=== PATIENT | female | born 1950 | race Caucasian/White ===

== ENCOUNTER 2024-01-07 07:15 | Inpatient (IN) | payer MEDICARE ==
--- NOTE | 2024-01-07 07:26 | ED ---
General Adult HPI - General Chief complaint: Shortness of Breath Stated complaint: LESLY Time Seen by Provider: 01/07/24 07:21 Source: patient, family, EMS, RN notes reviewed Mode of arrival: EMS Limitations: no limitations - History of Present Illness Initial comments: Patient is a 73-year-old female presenting to the emergency department with difficulty breathing. Onset of symptoms was just yesterday. Patient does have cough with occasional yellow sputum. No fevers. Patient does have history of COPD with similar symptoms previously. No calf pain. No leg swelling. - Related Data Allergies Allergy/AdvReac Type Severity Reaction Status Date / Time house dust mite Allergy Wheezing Verified 01/07/24 07:37 pollen extracts Allergy Wheezing Verified 01/07/24 07:37 Review of Systems ROS Statement: Those systems with pertinent positive or pertinent negative responses have been documented in the HPI. ROS Other: All systems not noted in ROS Statement are negative. Constitutional: Denies: fever Eyes: Denies: eye pain Respiratory: Reports: as per HPI, cough, dyspnea Cardiovascular: Denies: chest pain Musculoskeletal: Denies: back pain Past Medical History Past Medical History: Cancer Additional Past Medical History / Comment(s): Lung Cancer History of Any Multi-Drug Resistant Organisms: None Reported Past Surgical History: Section Past Psychological History: No Psychological Hx Reported Smoking Status: Former smoker Past Alcohol Use History: None Reported Past Drug Use History: None Reported General Exam Limitations: no limitations General appearance: alert, other (Speaks in 2-3 word sentences) Head exam: Present: normocephalic Eye exam: Present: normal appearance Respiratory exam: Present: respiratory distress, wheezes, accessory muscle use, decreased breath sounds Cardiovascular Exam: Present: normal rhythm, tachycardia GI/Abdominal exam: Present: soft. Absent: tenderness Extremities exam: Present: normal inspection. Absent: pedal edema, calf tenderness Neurological exam: Present: alert Psychiatric exam: Present: normal affect, normal mood Skin exam: Present: normal color Course Vital Signs 01/07/24 01/07/24 01/07/24 07:18 07:25 07:31 Temperature 98.0 F Pulse Rate 124 H 116 H Respiratory 18 36 H Rate Blood Pressure 181/98 O2 Sat by Pulse 100 Oximetry 01/07/24 01/07/24 07:43 08:59 Temperature Pulse Rate 120 H 112 H Respiratory Rate Blood Pressure O2 Sat by Pulse Oximetry EKG Findings - EKG Results: EKG: interpreted by ERMD, sinus rhythm, normal axis, normal QRS, normal ST/T EKG shows: tachycardia Medical Decision Making - Medical Decision Making Was pt. sent in by a medical professional or institution (ANTONIA Moralez, SIDING INSTALLER, urgent care, hospital, or long term...) When possible be specific @ -No Did you speak to anyone other than the patient for history (EMS, parent, family, police, friend...)? What history was obtained from this source @ -EMS helps provide history including presentation onsite and transportation Did you review nursing and triage notes (agree or disagree)? Why? @ -I reviewed and agree with nursing and triage notes Were old charts reviewed (outside hosp., previous admission, EMS record, old EKG, old radiological studies, urgent care reports/EKG's, long term records)? Report findings @ -No old charts were reviewed Differential Diagnosis (chest pain, altered mental status, abdominal pain women, abdominal pain men, vaginal bleeding, weakness, fever, dyspnea, syncope, headache, dizziness, GI bleed, back pain, seizure, CVA, palpatations, mental health, musculoskeletal)? @ -MDM differential differential Dyspnea: Coronary syndrome, arrhythmia, tamponade, asthma, COPD, pulmonary embolism, pneumonia, pneumothorax, pulmonary effusion, anaphylaxis, diabetic ketoacidosis, flailed chest, pulmonary contusion, diaphragmatic rupture, anemia, neuromuscular, this is not meant to be an all-inclusive list. EKG interpreted by me (3pts min.). @ -As above X-rays interpreted by me (1pt min.). @ -Chest x-ray shows COPD changes. No acute process CT interpreted by me (1pt min.). @ -None done U/S interpreted by me (1pt. min.). @ -None done What testing was considered but not performed or refused? (CT, X-rays, U/S, labs)? Why? @ -None What meds were considered but not given or refused? Why? @ -None Did you discuss the management of the patient with other professionals (professionals i.e. ANTONIA Moralez, SIDING INSTALLER, lab, RT, psych nurse, director of social media marketing, buoy tender, teacher, information systems security officer, showcase trimmer)? Give summary @ -Case was discussed with Dr. Brennan, who will admit covering hospital call Was smoking cessation discussed for >3mins.? @ -No Was critical care preformed (if so, how long)? @ -31 minutes critical care time Were there social determinants of health that impacted care today? How? (Homelessness, low income, unemployed, alcoholism, drug addiction, transportati on, low edu. Level, literacy, decrease access to med. care, fci, rehab)? @ -No Was there de-escalation of care discussed even if they declined (Discuss DNR or withdrawal of care, Hospice)? DNR status @ -No What co-morbidities impacted this encounter? (DM, HTN, Smoking, COPD, CAD, Cancer, CVA, ARF, Chemo, Hep., AIDS, mental health diagnosis, sleep apnea, morbid obesity)? @ -History of underlying COPD Was patient admitted / discharged? Hospital course, mention meds given and route, prescriptions, significant lab abnormalities, going to OR and other pertinent info. @ -Patient presents with respiratory distress significantly improved with nebulizers. Patient still has minimal respiratory distress and will be provided additional nebulizer and admitted. Patient and family updated. Admission orders written. Pulmonary will be placed on consult. Potential for sepsis diagnosed at 9:05 AM. Blood culture and lactic acid and IV antibiotics will be ordered. Patient is positive for RSV. Undiagnosed new problem with uncertain prognosis? @ -No Drug Therapy requiring intensive monitoring for toxicity (Heparin, Nitro, Insulin, Cardizem)? @ -No Were any procedures done? @ -No Diagnosis/symptom? @ -COPD, RSV Acute, or Chronic, or Acute on Chronic? @ -Acute, acute Uncomplicated (without systemic symptoms) or Complicated (systemic symptoms)? @ -Default Side effects of treatment? @ -No Exacerbation, Progression, or Severe Exacerbation? @ -COPD exacerbation Poses a threat to life or bodily function? How? (Chest pain, [place], [place], pneumonia, PE, COPD, DKA, ARF, appy, cholecystitis, CVA, Diverticulitis, Homicidal, Suicidal, threat to staff... and all critical care pts) @ -Threat to pulmonary function - Lab Data Result diagrams: 01/07/24 07:43 01/07/24 07:43 Lab Results 01/07/24 01/07/24 01/07/24 Range/Units 07:43 07:43 07:43 WBC 5.1 (3.8-10.6) k/uL RBC 3.43 L (3.80-5.40) m/uL Hgb 11.1 L (11.4-16.0) gm/dL Hct 34.5 (34.0-46.0) % MCV 100.5 H (80.0-100.0) fL MCH 32.3 (25.0-35.0) pg MCHC 32.1 (31.0-37.0) g/dL RDW 16.6 H (11.5-15.5) % Plt Count 217 (150-450) k/uL MPV 8.0 Anisocytosis Slight Macrocytosis Slight PT 10.0 (10.0-12.5) sec INR 0.9 (<1.2) APTT 18.0 L (22.0-30.0) sec Sodium 137 (137-145) mmol/L Potassium 5.1 (3.5-5.1) mmol/L Chloride 107 (98-107) mmol/L Carbon Dioxide 24 (22-30) mmol/L Anion Gap 6 mmol/L BUN 19 H (7-17) mg/dL Creatinine 0.78 (0.52-1.04) mg/dL Est GFR (CKD-EPI)AfAm 89 (>60 ml/min/1.73 sqM) Est GFR (CKD-EPI)NonAf 77 (>60 ml/min/1.73 sqM) Glucose 157 H (74-99) mg/dL Plasma Lactic Acid Rustam (0.7-2.0) mmol/L Calcium 8.8 (8.4-10.2) mg/dL Magnesium 1.8 (1.6-2.3) mg/dL Total Bilirubin 0.6 (0.2-1.3) mg/dL AST 47 H (14-36) U/L ALT 39 H (4-34) U/L Alkaline Phosphatase 90 (38-126) U/L Total Protein 7.2 (6.3-8.2) g/dL Albumin 4.1 (3.5-5.0) g/dL Influenza Type A (PCR) (Not Detectd) Influenza Type B (PCR) (Not Detectd) RSV (PCR) (Not Detectd) SARS-CoV-2 (PCR) (Not Detectd) 01/07/24 01/07/24 Range/Units 07:43 07:43 WBC (3.8-10.6) k/uL RBC (3.80-5.40) m/uL Hgb (11.4-16.0) gm/dL Hct (34.0-46.0) % MCV (80.0-100.0) fL MCH (25.0-35.0) pg MCHC (31.0-37.0) g/dL RDW (11.5-15.5) % Plt Count (150-450) k/uL MPV Anisocytosis Macrocytosis PT (10.0-12.5) sec INR (<1.2) APTT (22.0-30.0) sec Sodium (137-145) mmol/L Potassium (3.5-5.1) mmol/L Chloride (98-107) mmol/L Carbon Dioxide (22-30) mmol/L Anion Gap mmol/L BUN (7-17) mg/dL Creatinine (0.52-1.04) mg/dL Est GFR (CKD-EPI)AfAm (>60 ml/min/1.73 sqM) Est GFR (CKD-EPI)NonAf (>60 ml/min/1.73 sqM) Glucose (74-99) mg/dL Plasma Lactic Acid Rustam 0.9 (0.7-2.0) mmol/L Calcium (8.4-10.2) mg/dL Magnesium (1.6-2.3) mg/dL Total Bilirubin (0.2-1.3) mg/dL AST (14-36) U/L ALT (4-34) U/L Alkaline Phosphatase (38-126) U/L Total Protein (6.3-8.2) g/dL Albumin (3.5-5.0) g/dL Influenza Type A (PCR) Not Detected (Not Detectd) Influenza Type B (PCR) Not Detected (Not Detectd) RSV (PCR) Detected A (Not Detectd) SARS-CoV-2 (PCR) Not Detected (Not Detectd) Critical Care Time Critical Care Time: Yes Total Critical Care Time: 31 Disposition Clinical Impression: Acute exacerbation of chronic obstructive pulmonary disease Disposition: ADMITTED IP TO THIS HOSP Condition: Serious Is patient prescribed a controlled substance at d/c from ED?: No Referrals: Nonstaff,Physician [Primary Care Provider] - 1-2 days Time of Disposition: 09:06
[2024-01-07] MEDS: IPRATROPIUM-ALBUTEROL 3 ML NEB INHALATION STA ×2 (07:31→08:59)
[2024-01-07] MEDS: SODIUM CHLORIDE 0.9% 1,000 ML IV STA (07:38)
[2024-01-07] MEDS: methylPREDNISolone SOD SUCCI 125 MG/2 ML VIAL IV STA (07:38)
--- NOTE | 2024-01-07 08:06 | XR ---
EXAM: XR chest 1V portable CLINICAL INDICATION:Female, 73 years old with history of elida; [facility] COMPARISON: None. TECHNIQUE: Chest single view. FINDINGS: Lines/tubes/devices: EKG leads and necklace overlie the chest. Left chest MediPort with catheter tip over the SVC. Cardiomediastinum: Cardiac silhouette appears normal in size. Partially calcified, mildly tortuous aorta. Vasculature: No increased pulmonary vasculature. Lungs/pleura: Hyperinflated lungs with areas of relative lucency superiorly and linear presumed scarring also in th e right lung apex. No acute consolidation, pleural effusion, or pneumothorax is seen. Bones/soft tissues: Bony thorax appears grossly intact as seen. Mild degenerative changes. Regional soft tissues appear u nremarkable. IMPRESSION: No acute cardiopulmonary findings. Suspect COPD changes.
[2024-01-07 08:24] LABS: Anisocytosis Slight; HCT 34.5 % (34.0-46.0); HGB 11.1 gm/dL (11.4-16.0); MCH 32.3 pg (25.0-35.0); MCHC 32.1 g/dL (31.0-37.0); MCV 100.5 fL (80.0-100.0); Macrocytosis Slight; Platelet Count 217 k/uL (150-450); RBC 3.43 m/uL (3.80-5.40); RDW 16.6 % (11.5-15.5); WBC 5.1 k/uL (3.8-10.6)
[2024-01-07 08:26] LABS: ALT 39 U/L (4-34); AST 47 U/L (14-36); African American GFR (CKD) 89 (>60 ml/min/1.73 sqM); Albumin 4.1 g/dL (3.5-5.0); Alkaline Phosphatase 90 U/L (38-126); Anion Gap 6 mmol/L; Blood Urea Nitrogen 19 mg/dL (7-17); Calcium 8.8 mg/dL (8.4-10.2); Carbon Dioxide 24 mmol/L (22-30); Chloride 107 mmol/L (98-107); Glucose 157 mg/dL (74-99); Magnesium 1.8 mg/dL (1.6-2.3); Non-African American GFR(CKD) 77 (>60 ml/min/1.73 sqM); Sodium 137 mmol/L (137-145); Total Bilirubin 0.6 mg/dL (0.2-1.3); Total Protein 7.2 g/dL (6.3-8.2)
[2024-01-07 08:27] LABS: INR 0.9 (<1.2)
[2024-01-07 08:28] LABS: Potassium 5.1 mmol/L (3.5-5.1)
[2024-01-07] MEDS ORDERED: NALOXONE 0.4 MG/ML 1 ML VIAL IVP PRN (09:07)
[2024-01-07 09:35] LABS: Eosinophils # (M) 0.05 k/uL (0-0.7); Lymphocytes # (M) 0.51 k/uL (1.0-4.8); Monocytes # (M) 1.33 k/uL (0-1.0); Neutrophils # (M) 3.26 k/uL (1.3-7.7); Neutrophils % (M) 64 %; Nucleated Red Blood Cells 0 /100 WBC (0-0); Total Cells Counted 200
[2024-01-07] MEDS: IPRATROPIUM-ALBUTEROL 3 ML NEB INHALATION SCH (11:56)
[2024-01-07] MEDS: ACETAMINOPHEN TAB 325 MG TAB PO PRN (12:07)
[2024-01-07] MEDS: methylPREDNISolone SOD SUCCI 125 MG/2 ML VIAL IV SCH (12:08)
--- NOTE | 2024-01-07 16:23 | P.CNPUL ---
History of Present Illness Consult date: 01/07/24 Requesting physician: Nicolas Brennan Reason for consult: dyspnea, cough, COPD, hypoxemia, lung mass, abnormal CXR/CT Chief complaint: Shortness of breath, cough. History of present illness: Pulmonary consult dated January 07, 2024. 73-year-old female with history of COPD, and lung cancer. The patient presented to the emergency department today, at 7:15 in the morning. The patient came in with complaints of 2 days worth of increasing shortness of breath, chest congestion, and cough. Everything seemed to get worse just yesterday. The patient does not use home oxygen. She is being treated with Trelegy, and albuterol for her COPD. She sees a physician in [place], [place], but the name of . The patient was diagnosed with non-small cell lung cancer, June 2023. She has had chemotherapy, radiation therapy, and now is on immunotherapy, with Keytruda. The patient smoked for 45 years, 1 pack a day. She does not smoke currently. Current labs include a white count 5.1, hemoglobin 11.1, hematocrit 34.5, and platelet count 217,000. Sodium 137, potassium 5.1, chlorides 107, CO2 24, BUN 19, creatinine 0.78. Glucose is 157. She did test positive for RSV. Chest x-ray shows hyperlucent upper lung hua, consistent with proximal acinar or centrilobular emphysema. Review of Systems REVIEW OF SYSTEMS: CONSTITUTIONAL: [Negative.] NEUROLOGIC: [ Negative.] HEENT: [ Negative.] CARDIAC: [Negative.] PULMONARY: Shortness of breath, cough, minimal phlegm production. GI: [Negative.] : [Negative.] RHEUMATOLOGIC: [ Negative.] IMMUNOLOGIC: [ Negative.] ENDOCRINE: [Negative. ] DERMATOLOGIC: [Negative.] Past Medical History Past Medical History: Cancer Additional Past Medical History / Comment(s): Lung Cancer diagnosed in july 13 gets chemo infusions every 3 weeks, last admin december 26, immuno infusions every 3 weeks History of Any Multi-Drug Resistant Organisms: None Reported Past Surgical History: Section Additional Past Surgical History / Comment(s): left hip surgery 11/27/23, cataract surgery, partial nephrectomy Past Psychological History: No Psychological Hx Reported Smoking Status: Former smoker Past Alcohol Use History: None Reported Past Drug Use History: None Reported Medications and Allergies Home Medications Medication Instructions Recorded Confirmed Type Ergocalciferol [Vitamin D2 (1250 1,250 mcg PO FR 01/07/24 01/07/24 History Mcg = 21238 Iu)] Folic Acid 1 mg PO DAILY 01/07/24 01/07/24 History Keytruda(Unknown Dose) 1 dose IV Q21D 01/07/24 01/07/24 History Lidocaine-Prilocaine Cream [Emla 1 applic TOPICAL DIRECTED PRN 01/07/24 01/07/24 History Cream 2.5%/2.5%] OLANZapine [ZyPREXA] 5 mg PO DIRECTED@2100 01/07/24 01/07/24 History Omeprazole 20 mg PO DAILY 01/07/24 01/07/24 History Sennosides/Docusate Sodium [Senna 1 tab PO DAILY PRN 01/07/24 01/07/24 History Plus 8.6-50 mg Tablet] Sertraline HCl [Zoloft] 50 mg PO HS 01/07/24 01/07/24 History dexAMETHasone [Decadron] 4 mg PO DIRECTED 01/07/24 01/07/24 History lisinopriL [Zestril] 5 mg PO DAILY 01/07/24 01/07/24 History Allergies Allergy/AdvReac Type Severity Reaction Status Date / Time house dust mite Allergy Wheezing Verified 01/07/24 13:23 pollen extracts Allergy Wheezing Verified 01/07/24 13:23 Physical Exam Osteopathic Statement: *. No significant issues noted on an osteopathic structural exam other than those noted in the History and Physical/Consult. Vitals: Vital Signs Temp Pulse Pulse Resp BP BP Pulse Ox 01/07/24 13:14 98.6 F 107 H 19 136/54 96 01/07/24 12:42 116 H 20 145/59 98 01/07/24 12:12 110 H 16 01/07/24 11:57 107 H 16 01/07/24 10:00 108 H 22 142/69 99 01/07/24 09:11 110 H 24 01/07/24 09:00 109 H 22 132/71 99 01/07/24 08:59 112 H 01/07/24 08:00 115 H 22 159/70 99 01/07/24 07:43 120 H 01/07/24 07:31 116 H 01/07/24 07:25 36 H 01/07/24 07:18 98.0 F 124 H 18 181/98 100 Intake and Output 01/07/24 01/07/24 01/07/24 06:59 14:59 22:59 Other: Weight 49.895 kg Mild to moderate respiratory distress, frequent cough, audible wheezing. Currently on 6 L nasal cannula. HEENT examination is grossly unremarkable. Mucous membranes are moist. No oral lesions. Neck supple. Full range of motion. No adenopathy thyromegaly or neck vein distention. Cardiovascular examination reveals regular rhythm rate. S1-S2 normal. No S3 or S4. No discernible murmur noted. Heart rate 107 bpm. Lungs reveal coarse bilateral inspiratory and expiratory wheezes and rhonchi. Breath sounds are equal bilaterally but diminished throughout. She coughs frequently. Saturations are 96% on 6 L.. Abdomen soft bowel sounds are heard. No masses or tenderness. Extremities are intact. No cyanosis clubbing or edema. Skin is without rash or lesion. Neurologic examination is brief but nonfocal. Results - Laboratory Findings CBC and BMP: 01/07/24 07:43 01/07/24 07:43 PT/INR, D-dimer PT 10.0 sec (10.0-12.5) 01/07/24 07:43 INR 0.9 (<1.2) 01/07/24 07:43 Abnormal lab findings: Abnormal Labs 01/07/24 01/07/24 01/07/24 07:43 07:43 07:43 RBC 3.43 L Hgb 11.1 L MCV 100.5 H RDW 16.6 H Lymphocytes # (Manual) 0.51 L Monocytes # (Manual) 1.33 H APTT 18.0 L BUN 19 H Glucose 157 H AST 47 H ALT 39 H RSV (PCR) 01/07/24 07:43 RBC Hgb MCV RDW Lymphocytes # (Manual) Monocytes # (Manual) APTT BUN Glucose AST ALT RSV (PCR) Detected A - Diagnostic Findings Chest x-ray: image reviewed Assessment and Plan Assessment: Acute hypoxemic respiratory failure, secondary to COPD exacerbation, likely triggered by RSV infection. History of non-small cell lung cancer, with previous chemotherapy and radiation therapy, now on immunotherapy with Keytruda. Previous history of 45 years of tobacco use. History of hypertension. Plan: Plan dated January 07, 2024. The patient is seen today in room 467. She is quite bronchospastic. Labs, x- rays, and medications are reviewed. The patient has a history of lung cancer, with previous treatment both with chemo, and radiation, now on immunotherapy with Keytruda. She has a history of COPD for many years of tobacco use. Labs, x-rays, and medications are reviewed. Please see my orders. Prognosis is guarded. Time with Patient: Greater than 30
[2024-01-07] MEDS: HEPARIN SODIUM,PORCINE 5,000 UNIT/ML 1 ML VIAL SQ SCH (17:02)
[2024-01-07] MEDS: HYDROcodone/APAP 5-325MG 1 EACH TAB PO PRN (18:32)
[2024-01-07] MEDS: SERTRALINE 50 MG TAB PO SCH (20:14)
[2024-01-07] MEDS ORDERED: OLANZapine 5 MG TAB PO SCH (21:00)
[2024-01-07] MEDS: FORMOTEROL FUMARATE 20 MCG/2 ML NEBU INHALATION SCH (21:06)
[2024-01-07] MEDS: BUDESONIDE 1 MG/2 ML NEBU INHALATION SCH (21:07)
--- NOTE | 2024-01-07 23:12 | P.HPIM ---
History of Present Illness H&P Date: 01/07/24 Chief Complaint: Difficulty in breathing Patient is a 73-year-old female with known history of non-small lung cancer s/p chemotherapy and currently on immunotherapy and prior history of smoking presents to ER with complaints of difficulty breathing and cough with yellow sputum production. All her symptoms started yesterday afternoon and has been worsening which made her to come to ER. Denies any fever or chills. No complaints of nausea vomiting abdominal pain or diarrhea. Denies any recent illnesses or sick contacts. Patient was tachycardic and hypertensive on admission and also requiring oxygen at present nonrebreather on admission. Chest x-ray showed no acute cardiopulmonary findings. Suspect COPD changes. Laboratory data showed WBC 5.1 hemoglobin 11.1 and platelets 217 Sodium 137 potassium 5.1 chloride 107 bicarb is 24 BUN 19 and creatinine 0.78 and blood sugar 157, AST 47 ALT 39 alk phos 90 RSV PCR positive Review of Systems Constitutional: Patient denies any fever or chills . Does have generalized weakness and fatigue s. Abdomen: Patient denied nausea vomiting and diarrhea and abdominal pain. Cardiovascular: Patient denies any chest pain. Positive for short of breath no palpitations. Respiratory: patient does have cough with yellow sputum production and shortness of breath Neurologic: Patient denied any numbness or tingling headache. Musculoskeletal: Patient denies any complaints of joint swelling or deformity. Skin: Negative Psychiatric: Negative Endocrine: No heat or cold intolerance. No recent weight gain. Genitourinary: No dysuria or hematuria. All other 14 point ROS negative except the above Past Medical History Past Medical History: Cancer Additional Past Medical History / Comment(s): Lung Cancer History of Any Multi-Drug Resistant Organisms: None Reported Past Surgical History: Section Past Psychological History: No Psychological Hx Reported Smoking Status: Former smoker Past Alcohol Use History: None Reported Past Drug Use History: None Reported Medications and Allergies Home Medications Medication Instructions Recorded Confirmed Type Ergocalciferol [Vitamin D2 (1250 1,250 mcg PO FR 01/07/24 01/07/24 History Mcg = 26103 Iu)] Folic Acid 1 mg PO DAILY 01/07/24 01/07/24 History Keytruda(Unknown Dose) 1 dose IV Q21D 01/07/24 01/07/24 History Lidocaine-Prilocaine Cream [Emla 1 applic TOPICAL DIRECTED PRN 01/07/24 01/07/24 History Cream 2.5%/2.5%] OLANZapine [ZyPREXA] 5 mg PO DIRECTED@2100 01/07/24 01/07/24 History Omeprazole 20 mg PO DAILY 01/07/24 01/07/24 History Sennosides/Docusate Sodium [Senna 1 tab PO DAILY PRN 01/07/24 01/07/24 History Plus 8.6-50 mg Tablet] Sertraline HCl [Zoloft] 50 mg PO HS 01/07/24 01/07/24 History dexAMETHasone [Decadron] 4 mg PO DIRECTED 01/07/24 01/07/24 History lisinopriL [Zestril] 5 mg PO DAILY 01/07/24 01/07/24 History Allergies Allergy/AdvReac Type Severity Reaction Status Date / Time house dust mite Allergy Wheezing Verified 01/07/24 13:23 pollen extracts Allergy Wheezing Verified 01/07/24 13:23 Physical Exam Vitals: Vital Signs Temp Pulse Resp BP Pulse Ox 01/07/24 09:11 110 H 24 01/07/24 08:59 112 H 01/07/24 07:43 120 H 01/07/24 07:31 116 H 01/07/24 07:25 36 H 01/07/24 07:18 98.0 F 124 H 18 181/98 100 Intake and Output 01/06/24 01/07/24 01/07/24 22:59 06:59 14:59 Other: Weight 49.895 kg PHYSICAL EXAMINATION: Patient is lying in the bed, mild distress, awake alert and oriented.. HEENT: Normocephalic. Neck is supple. Pupils reactive. Nostrils clear. Oral cavity is moist. Neck reveals no JVD, carotid bruits, or thyromegaly. CHEST EXAMINATION: Trachea is central. Symmetrical expansion. Bilateral diffuse wheezing and diminished sounds.. CARDIAC: Normal S1, S2 with no gallops. No murmurs ABDOMEN: Soft. Bowel sounds normal. No organomegaly. No abdominal bruits. Extremities: reveal no edema. No clubbing or cyanosis Neurologically awake, alert, oriented x3 with well-coordinated movements. No focal deficits noted Skin: No rash or skin lesions. Psychiatric: Coperative. Nonsuicidal Musculoskeletal: No joint swelling or deformity. Normal range of motion. Results CBC & Chem 7: 01/07/24 07:43 01/07/24 07:43 Labs: Abnormal Lab Results - Last 24 Hours (Table) 01/07/24 01/07/24 01/07/24 Range/Units 07:43 07:43 07:43 RBC 3.43 L (3.80-5.40) m/uL Hgb 11.1 L (11.4-16.0) gm/dL MCV 100.5 H (80.0-100.0) fL RDW 16.6 H (11.5-15.5) % Lymphocytes # (Manual) 0.51 L (1.0-4.8) k/uL Monocytes # (Manual) 1.33 H (0-1.0) k/uL APTT 18.0 L (22.0-30.0) sec BUN 19 H (7-17) mg/dL Glucose 157 H (74-99) mg/dL AST 47 H (14-36) U/L ALT 39 H (4-34) U/L RSV (PCR) (Not Detectd) 01/07/24 Range/Units 07:43 RBC (3.80-5.40) m/uL Hgb (11.4-16.0) gm/dL MCV (80.0-100.0) fL RDW (11.5-15.5) % Lymphocytes # (Manual) (1.0-4.8) k/uL Monocytes # (Manual) (0-1.0) k/uL APTT (22.0-30.0) sec BUN (7-17) mg/dL Glucose (74-99) mg/dL AST (14-36) U/L ALT (4-34) U/L RSV (PCR) Detected A (Not Detectd) Thrombosis Risk Factor Assmnt - DVT/VTE Prophylaxis DVT/VTE Prophylaxis: Pharmacologic Prophylaxis ordered Assessment and Plan Assessment: Acute hypoxic respiratory failure requiring plus nonrebreather on admission. Acute COPD exacerbation. To acute RSV infection Acute RSV infection Transaminitis Microcytic anemia with hemoglobin 11.1 History of non-small cell lung cancer status post chemoradiation and currently on Keytruda DVT prophylaxis with heparin subcu Plan: Patient will be continued on oxygen supplementation via nasal cannula. Continue with IV Solu-Medrol DuoNebs and antibiotics of ceftriaxone. Procalcitonin level was ordered. Pulmonary consult due to respiratory failure. Current with home medications and follow-up closely. Time with Patient: Greater than 30
[2024-01-07] MEDS: ONDANSETRON 4 MG/2 ML VIAL IVP PRN (23:28)
[2024-01-08] MEDS: FOLIC ACID 1 MG TAB PO SCH (07:48)
[2024-01-08] MEDS: PANTOPRAZOLE 40 MG TABLET PO SCH (07:48)
[2024-01-08 08:34] LABS: HCT 32.2 % (37.2-46.3); HGB 9.8 g/dL (12.0-15.0); MCH 31.6 pg (27.0-32.0); MCHC 30.4 g/dL (32.0-37.0); MCV 103.9 FL (80.0-97.0); Mean Platelet Volume 10.3 FL (9.5-12.2); NRBC Per 100 WBC 0 X 10*3/uL (0.00-0.01); Platelet Count 188 X 10*3/uL (140-440); RDW 16.6 % (11.5-14.5); WBC 8.08 X 10*3/uL (4.50-10.00)
[2024-01-08 09:01] LABS: Basophils # (A) 0.01 X 10*3/uL (0.00-0.10); Basophils % (A) 0.1 %; Eosinophils # (A) 0 X 10*3/uL (0.04-0.35); Eosinophils % (A) 0 %; Lymphocytes # (A) 0.43 X 10*3/uL (0.90-5.00); Lymphocytes % (A) 5.3 %; Monocytes # (A) 1.63 X 10*3/uL (0.20-1.00); Monocytes % (A) 20.2 %; Neutrophils # (A) 5.94 X 10*3/uL (1.80-7.70); Neutrophils % (A) 73.5 %; RBC Morphology Normal (Normal)
[2024-01-08 09:09] LABS: ALT 32 U/L (8-44); AST 30 U/L (13-35); Albumin 4.2 g/dL (3.8-4.9); Albumin/Globulin Ratio 1.75 Ratio (1.60-3.17); Alkaline Phosphatase 90 U/L (41-126); BUN/Creat Ratio 28.75 Ratio (12.00-20.00); Calcium 8.5 mg/dL (8.7-10.3); Carbon Dioxide 24.2 mmol/L (21.6-31.8); Chloride 106 mmol/L (96-109); Globulin 2.4 g/dL (1.6-3.3); Glucose 137 mg/dL (70-110); Potassium 5.1 mmol/L (3.5-5.5); Sodium 141 mmol/L (135-145); Total Bilirubin <0.2 mg/dL (0.3-1.2); Total Protein 6.6 g/dL (6.2-8.2)
[2024-01-08] MEDS: lisinopriL 5 MG TAB PO SCH (10:49)
[2024-01-08] MEDS: TRELEGY ELLIPTA INHALER PO SCH (13:47)
--- NOTE | 2024-01-08 16:44 | P.PN ---
Subjective Progress Note Date: 01/08/24 73-year-old female with history of COPD, and lung cancer. The patient presented to the emergency department today, at 7:15 in the morning. The patient came in with complaints of 2 days worth of increasing shortness of breath, chest congestion, and cough. Everything seemed to get worse just yesterday. The patient does not use home oxygen. She is being treated with Trelegy, and albuterol for her COPD. She sees a physician in [place], [place], but the name of . The patient was diagnosed with non-small cell lung cancer, June 2023. She has had chemotherapy, radiation therapy, and now is on immunotherapy, with Keytruda. The patient smoked for 45 years, 1 pack a day. She does not s moke currently. Current labs include a white count 5.1, hemoglobin 11.1, hematocrit 34.5, and platelet count 217,000. Sodium 137, potassium 5.1, chlorides 107, CO2 24, BUN 19, creatinine 0.78. Glucose is 157. She did test positive for RSV. Chest x-ray shows hyperlucent upper lung hua, consistent with proximal acinar or centrilobular emphysema. on today's evaluation of 01/08/2024, the patient is being seen for a follow-up. This patient is known to have advanced COPD, and the patient has been maintained on Trelegy Ellipta on outpatient basis. The patient was hospitalized for worsening shortness of breath attributed essentially to COPD exacerbation. Noted her plastic tubing insulation supervisor and her medical oncologist out of [facility] in [facility]. The patient is known to have non-small cell lung cancer the patient was treated with a combination of chemoradiation therapy and the patient is currently on immunotherapy with Keytruda. She does have an acute RSV infection and the patient remainsOn today's blood work, the patient has no significant abnormalities. The white cell count is at 8 with a hemoglobin 9.8 and a platelet count of 188. The patient's sodium levels at 141, BUN is 23 with a creatinine of 0.8 and a potassium level of 5.1. LFTs are essentially within normal limits. The patient remains on DuoNeb nebulized treatments [id number]. The patient remains on IV Solu-Medrol 60 mg every 6 hours. At this point in time, she is afebrile, she is on 60s of oxygen by nasal cannula with a pulse ox of 99%. I reviewed the chest x-ray from the current admission and this x-ray was done on 01/07/2024 and there is no evidence of any acute cardiopulmonary process. There is emphysematous changes mainly involving the upper lobes and the patient has obvious hyperinflation. Objective - Vital Signs Vital signs: Vital Signs Temp 97.5 F L 01/08/24 07:27 Pulse 100 01/08/24 12:47 Resp 18 01/08/24 07:27 BP 108/70 01/08/24 07:27 Pulse Ox 100 01/08/24 12:29 FiO2 Intake & Output 01/07/24 01/08/24 01/08/24 18:59 06:59 18:59 Weight 49.895 kg Other: # Voids 1 3 - Exam Mild to moderate respiratory distress, frequent cough, audible wheezing. Currently on 6 L nasal cannula. HEENT examination is grossly unremarkable. Mucous membranes are moist. No oral lesions. Neck supple. Full range of motion. No adenopathy thyromegaly or neck vein distention. Cardiovascular examination reveals regular rhythm rate. S1-S2 normal. No S3 or S4. No discernible murmur noted. Lungs reveal coarse bilateral inspiratory and expiratory wheezes and rhonchi. Breath sounds are equal bilaterally but diminished throughout. She coughs frequently. Abdomen soft bowel sounds are heard. No masses or tenderness. Extremities are intact. No cyanosis clubbing or edema. Skin is without rash or lesion. Neurologic examination is brief but nonfocal. - Labs CBC & Chem 7: 01/08/24 05:15 01/08/24 05:15 Labs: Abnormal Lab Results - Last 24 Hours (Table) 01/07/24 01/08/24 01/08/24 Range/Units 07:43 05:15 05:15 RBC 3.10 L (4.10-5.20) X 10*6/uL Hgb 9.8 L (12.0-15.0) g/dL Hct 32.2 L (37.2-46.3) % MCV 103.9 H (80.0-97.0) FL MCHC 30.4 L (32.0-37.0) g/dL RDW 16.6 H (11.5-14.5) % Immature Gran # 0.07 H (0.00-0.04) X 10*3/uL Lymphocytes # 0.43 L (0.90-5.00) X 10*3/uL Monocytes # 1.63 H (0.20-1.00) X 10*3/uL Eosinophils # 0 L (0.04-0.35) X 10*3/uL BUN/Creatinine Ratio 28.75 H (12.00-20.00) Ratio Glucose 137 H (70-110) mg/dL Calcium 8.5 L (8.7-10.3) mg/dL Total Bilirubin <0.2 L (0.3-1.2) mg/dL Procalcitonin 0.11 H (0.02-0.09) ng/mL Assessment and Plan Plan: Acute hypoxemic respiratory failure, secondary to COPD exacerbation, likely triggered by RSV infection. Acute on chronic shortness of breath secondary to COPD exacerbation/RSV infection Acute RSV tracheobronchitis, no evidence of any pneumonia based on chest x-ray findings. History of non-small cell lung cancer, with previous chemotherapy and radiation therapy, now on immunotherapy with Keytruda. Previous history of 45 years of tobacco use. History of hypertension. Plan: Continue same treatment Titrate FiO2 as tolerated to maintain saturation above 90% Allow the patient to utilize her Trelegy Ellipta from home 1 puff a day DuoNeb nebulized treatments 4 times a day [id number] IV Solu-Medrol 60 mg every 6 hours Resume rest of the home medications Will continue to follow
[2024-01-08] MEDS: IPRATROPIUM-ALBUTEROL 3 ML NEB INHALATION PRN (20:08)
[2024-01-09 08:36] LABS: Basophils # (A) 0.01 X 10*3/uL (0.00-0.10); Basophils % (A) 0.1 %; Eosinophils # (A) 0 X 10*3/uL (0.04-0.35); Eosinophils % (A) 0 %; HCT 29.3 % (37.2-46.3); HGB 8.9 g/dL (12.0-15.0); Lymphocytes # (A) 0.34 X 10*3/uL (0.90-5.00); Lymphocytes % (A) 3.4 %; MCH 31.9 pg (27.0-32.0); MCHC 30.4 g/dL (32.0-37.0); Mean Platelet Volume 10.6 FL (9.5-12.2); Monocytes # (A) 1.69 X 10*3/uL (0.20-1.00); Monocytes % (A) 16.9 %; NRBC Per 100 WBC 0 X 10*3/uL (0.00-0.01); Neutrophils # (A) 7.92 X 10*3/uL (1.80-7.70); Platelet Count 193 X 10*3/uL (140-440); RBC 2.79 X 10*6/uL (4.10-5.20); RDW 16.9 % (11.5-14.5); WBC 10.02 X 10*3/uL (4.50-10.00)
[2024-01-09 08:55] LABS: BUN/Creat Ratio 27.12 Ratio (12.00-20.00); Blood Urea Nitrogen 21.7 mg/dL (9.0-27.0); Calcium 8.2 mg/dL (8.7-10.3); Carbon Dioxide 24.5 mmol/L (21.6-31.8); Chloride 107 mmol/L (96-109); Glucose 124 mg/dL (70-110); Potassium 4.8 mmol/L (3.5-5.5); Sodium 142 mmol/L (135-145)
[2024-01-09] MEDS: MELATONIN 5 MG TABLET PO SCH (22:28)
--- NOTE | 2024-01-09 22:44 | P.PN ---
Subjective Progress Note Date: 01/09/24 73-year-old female with history of COPD, and lung cancer. The patient presented to the emergency department today, at 7:15 in the morning. The patient came in with complaints of 2 days worth of increasing shortness of breath, chest congestion, and cough. Everything seemed to get worse just yesterday. The patient does not use home oxygen. She is being treated with Trelegy, and albuterol for her COPD. She sees a physician in [place], [place], but the name of . The patient was diagnosed with non-small cell lung cancer, June 2023. She has had chemotherapy, radiation therapy, and now is on immunotherapy, with Keytruda. The patient smoked for 45 years, 1 pack a day. She does not s moke currently. Current labs include a white count 5.1, hemoglobin 11.1, hematocrit 34.5, and platelet count 217,000. Sodium 137, potassium 5.1, chlorides 107, CO2 24, BUN 19, creatinine 0.78. Glucose is 157. She did test positive for RSV. Chest x-ray shows hyperlucent upper lung hua, consistent with proximal acinar or centrilobular emphysema. on today's evaluation of 01/08/2024, the patient is being seen for a follow-up. This patient is known to have advanced COPD, and the patient has been maintained on Trelegy Ellipta on outpatient basis. The patient was hospitalized for worsening shortness of breath attributed essentially to COPD exacerbation. Noted her phthalic acid purifier and her medical oncologist out of [facility] in [facility]. The patient is known to have non-small cell lung cancer the patient was treated with a combination of chemoradiation therapy and the patient is currently on immunotherapy with Keytruda. She does have an acute RSV infection and the patient remainsOn today's blood work, the patient has no significant abnormalities. The white cell count is at 8 with a hemoglobin 9.8 and a platelet count of 188. The patient's sodium levels at 141, BUN is 23 with a creatinine of 0.8 and a potassium level of 5.1. LFTs are essentially within normal limits. The patient remains on DuoNeb nebulized treatments [id number]. The patient remains on IV Solu-Medrol 60 mg every 6 hours. At this point in time, she is afebrile, she is on 60s of oxygen by nasal cannula with a pulse ox of 99%. I reviewed the chest x-ray from the current admission and this x-ray was done on 01/07/2024 and there is no evidence of any acute cardiopulmonary process. There is emphysematous changes mainly involving the upper lobes and the patient has obvious hyperinflation. 01/09/2024, patient is less short of breath compared to yesterday and less bronchospastic and wheezy. Has a congested cough. Unable to bring up much sputum. White cell count is at 10 with a hemoglobin 8.9 and a platelet count of 193. Sodium is 142 with a BUN of 21 and a creatinine of 0.8 and a potassium level of 4.8. Remains essentially the same treatment. Remains on DuoNeb. Rem ains on IV Solu-Medrol. Empiric antibiotic coverage with IV Rocephin. No altered mentation. No chest pain. No other complaints otherwise for now. Objective - Vital Signs Vital signs: Vital Signs Temp 97.3 F L 01/09/24 07:29 Pulse 92 01/09/24 09:06 Resp 18 01/09/24 09:06 BP 124/65 01/09/24 07:29 Pulse Ox 100 01/09/24 08:56 FiO2 Intake & Output 01/08/24 01/09/24 01/09/24 18:59 06:59 18:59 Intake Total 474 Balance 474 Intake: Oral 474 Other: Voiding Method Bedside Commode # Voids 3 1 - Exam Mild to moderate respiratory distress, frequent cough, audible wheezing. Currently on 6 L nasal cannula. HEENT examination is grossly unremarkable. Mucous membranes are moist. No oral lesions. Neck supple. Full range of motion. No adenopathy thyromegaly or neck vein distention. Cardiovascular examination reveals regular rhythm rate. S1-S2 normal. No S3 or S4. No discernible murmur noted. Lungs reveal coarse bilateral inspiratory and expiratory wheezes and rhonchi. Breath sounds are equal bilaterally but diminished throughout. She coughs frequently. Abdomen soft bowel sounds are heard. No masses or tenderness. Extremities are intact. No cyanosis clubbing or edema. Skin is without rash or lesion. Neurologic examination is brief but nonfocal. - Labs CBC & Chem 7: 01/09/24 04:52 01/09/24 04:52 Labs: Abnormal Lab Results - Last 24 Hours (Table) 01/09/24 01/09/24 Range/Units 04:52 04:52 WBC 10.02 H (4.50-10.00) X 10*3/uL RBC 2.79 L (4.10-5.20) X 10*6/uL Hgb 8.9 L (12.0-15.0) g/dL Hct 29.3 L (37.2-46.3) % MCV 105.0 H (80.0-97.0) FL MCHC 30.4 L (32.0-37.0) g/dL RDW 16.9 H (11.5-14.5) % Immature Gran # 0.06 H (0.00-0.04) X 10*3/uL Neutrophils # 7.92 H (1.80-7.70) X 10*3/uL Lymphocytes # 0.34 L (0.90-5.00) X 10*3/uL Monocytes # 1.69 H (0.20-1.00) X 10*3/uL Eosinophils # 0 L (0.04-0.35) X 10*3/uL BUN/Creatinine Ratio 27.12 H (12.00-20.00) Ratio Glucose 124 H (70-110) mg/dL Calcium 8.2 L (8.7-10.3) mg/dL Microbiology - Last 24 Hours (Table) 01/07/24 09:14 Blood Culture - Preliminary Blood 01/07/24 08:55 Blood Culture - Preliminary Blood Assessment and Plan Plan: Acute hypoxemic respiratory failure, secondary to COPD exacerbation, likely triggered by RSV infection. Oxygenation is stable and the patient remains on oxygen at 2 L/min nasal cannula with a pulse ox of 97% Acute on chronic shortness of breath secondary to COPD exacerbation/RSV infection, slowly improving and probably some mild clinical improvement is noted over the past 24 hours Acute RSV tracheobronchitis, no evidence of any pneumonia based on chest x-ray findings. History of non-small cell lung cancer, with previous chemotherapy and radiation therapy, now on immunotherapy with Keytruda. Previous history of 45 years of tobacco use. History of hypertension. Plan: Continue same treatment Titrate FiO2 as tolerated to maintain saturation above 90% Allow the patient to utilize her Trelegy Ellipta from home 1 puff a day DuoNeb nebulized treatments 4 times a day [id number] IV Solu-Medrol 60 mg every 6 hours Resume rest of the home medications Will continue to follow
--- NOTE | 2024-01-09 23:14 | P.PN ---
Subjective Progress Note Date: 01/08/24 Patient is a 73-year-old female with known history of non-small lung cancer s/p chemotherapy and currently on immunotherapy and prior history of smoking presents to ER with complaints of difficulty breathing and cough with yellow sputum production. All her symptoms started yesterday afternoon and has been worsening which made her to come to ER. Denies any fever or chills. No complaints of nausea vomiting abdominal pain or diarrhea. Denies any recent illnesses or sick contacts. Patient was tachycar dic and hypertensive on admission and also requiring oxygen at present nonrebreather on admission. Chest x-ray showed no acute cardiopulmonary findings. Suspect COPD changes. Laboratory data showed WBC 5.1 hemoglobin 11.1 and platelets 217 Sodium 137 potassium 5.1 chloride 107 bicarb is 24 BUN 19 and creatinine 0.78 and blood sugar 157, AST 47 ALT 39 alk phos 90 RSV PCR positive 01/08/2024 Patient currently lying in the bed. Awake alert and oriented x 3. Lethargic and weak. Still requiring high flow oxygen at 6 L. Afebrile. No nausea or vomiting or diarrhea. No complaints of chest pain. Still having shortness of breath. Laboratory pressure WBC 8.0 hemoglobin 9.8 and platelets 188 Blood sugar 137 liver enzymes normalized. Patient has been continued on IV Solu-Medrol, DuoNebs and antibiotics of ceftriaxone. Blood cultures negative so far. Pulmonary is on board. Current medications reviewed. Objective - Vital Signs Vital signs: Vital Signs Temp 97.6 F 01/08/24 20:00 Pulse 92 01/08/24 20:18 Resp 18 01/08/24 07:27 BP 129/62 01/08/24 20:00 Pulse Ox 97 01/08/24 20:00 FiO2 Intake & Output 01/08/24 01/08/24 01/09/24 06:59 18:59 06:59 Intake Total 474 Balance 474 Intake: Oral 474 Other: # Voids 3 3 - Exam PHYSICAL EXAMINATION: Patient is lying in the bed, mild distress, awake alert and oriented.. HEENT: Normocephalic. Neck is supple. Pupils reactive. Nostrils clear. Oral cavity is moist. Neck reveals no JVD, carotid bruits, or thyromegaly. CHEST EXAMINATION: Trachea is central. Symmetrical expansion. Bilateral diffuse wheezing and diminished sounds.. CARDIAC: Normal S1, S2 with no gallops. No murmurs ABDOMEN: Soft. Bowel sounds normal. No organomegaly. No abdominal bruits. Extremities: reveal no edema. No clubbing or cyanosis Neurologically awake, alert, oriented x3 with well-coordinated movements. No focal deficits noted Skin: No rash or skin lesions. Psychiatric: Coperative. Nonsuicidal Musculoskeletal: No joint swelling or deformity. Normal range of motion. - Labs CBC & Chem 7: 01/09/24 04:52 01/09/24 04:52 Labs: Abnormal Lab Results - Last 24 Hours (Table) 01/07/24 01/08/24 01/08/24 Range/Units 07:43 05:15 05:15 RBC 3.10 L (4.10-5.20) X 10*6/uL Hgb 9.8 L (12.0-15.0) g/dL Hct 32.2 L (37.2-46.3) % MCV 103.9 H (80.0-97.0) FL MCHC 30.4 L (32.0-37.0) g/dL RDW 16.6 H (11.5-14.5) % Immature Gran # 0.07 H (0.00-0.04) X 10*3/uL Lymphocytes # 0.43 L (0.90-5.00) X 10*3/uL Monocytes # 1.63 H (0.20-1.00) X 10*3/uL Eosinophils # 0 L (0.04-0.35) X 10*3/uL BUN/Creatinine Ratio 28.75 H (12.00-20.00) Ratio Glucose 137 H (70-110) mg/dL Calcium 8.5 L (8.7-10.3) mg/dL Total Bilirubin <0.2 L (0.3-1.2) mg/dL Procalcitonin 0.11 H (0.02-0.09) ng/mL Microbiology - Last 24 Hours (Table) 01/07/24 09:14 Blood Culture - Preliminary Blood 01/07/24 08:55 Blood Culture - Preliminary Blood Assessment and Plan Assessment: Acute hypoxic respiratory failure requiring nonrebreather on admission. Acute COPD exacerbation. Likely due to acute RSV infection Acute RSV infection Transaminitis. Resolved. Microcytic anemia with hemoglobin 11.1 History of non-small cell lung cancer status post chemoradiation and currently on Keytruda DVT prophylaxis with heparin subcu Plan: Patient will be continued on oxygen supplementation via nasal cannula. Currently on 6 L high flow oxygen via nasal cannula. Continue with IV Solu-Medrol DuoNebs and antibiotics of ceftriaxone. Procalcitonin level 0.11 Pulmonary is on board.. Current with home medications and follow-up closely. Time with Patient: Greater than 30
[2024-01-10 08:39] LABS: Basophils # (A) 0.02 X 10*3/uL (0.00-0.10); Basophils % (A) 0.2 %; Eosinophils # (A) 0 X 10*3/uL (0.04-0.35); Eosinophils % (A) 0 %; HCT 29.8 % (37.2-46.3); HGB 9.3 g/dL (12.0-15.0); Lymphocytes # (A) 0.49 X 10*3/uL (0.90-5.00); Lymphocytes % (A) 5.1 %; MCH 31.8 pg (27.0-32.0); MCHC 31.2 g/dL (32.0-37.0); MCV 102.1 FL (80.0-97.0); Mean Platelet Volume 11.1 FL (9.5-12.2); Monocytes # (A) 0.99 X 10*3/uL (0.20-1.00); Monocytes % (A) 10.4 %; NRBC Per 100 WBC 0 X 10*3/uL (0.00-0.01); Neutrophils # (A) 7.92 X 10*3/uL (1.80-7.70); Neutrophils % (A) 82.9 %; Platelet Count 199 X 10*3/uL (140-440); RBC 2.92 X 10*6/uL (4.10-5.20); RDW 17.1 % (11.5-14.5); WBC 9.55 X 10*3/uL (4.50-10.00)
[2024-01-10 08:52] LABS: Blood Urea Nitrogen 20.8 mg/dL (9.0-27.0); Carbon Dioxide 25.6 mmol/L (21.6-31.8); Chloride 106 mmol/L (96-109); Glucose 114 mg/dL (70-110); Potassium 4.6 mmol/L (3.5-5.5); Sodium 142 mmol/L (135-145)
[2024-01-10] MEDS: TRELEGY ELLIPTA INHALER PO SCH (09:09)
--- NOTE | 2024-01-10 15:52 | P.PN ---
Subjective Progress Note Date: 01/10/24 73-year-old female with history of COPD, and lung cancer. The patient presented to the emergency department today, at 7:15 in the morning. The patient came in with complaints of 2 days worth of increasing shortness of breath, chest congestion, and cough. Everything seemed to get worse just yesterday. The patient does not use home oxygen. She is being treated with Trelegy, and albuterol for her COPD. She sees a physician in [place], [place], but the name of . The patient was diagnosed with non-small cell lung cancer, June 2023. She has had chemotherapy, radiation therapy, and now is on immunotherapy, with Keytruda. The patient smoked for 45 years, 1 pack a day. She does not s moke currently. Current labs include a white count 5.1, hemoglobin 11.1, hematocrit 34.5, and platelet count 217,000. Sodium 137, potassium 5.1, chlorides 107, CO2 24, BUN 19, creatinine 0.78. Glucose is 157. She did test positive for RSV. Chest x-ray shows hyperlucent upper lung hua, consistent with proximal acinar or centrilobular emphysema. on today's evaluation of 01/08/2024, the patient is being seen for a follow-up. This patient is known to have advanced COPD, and the patient has been maintained on Trelegy Ellipta on outpatient basis. The patient was hospitalized for worsening shortness of breath attributed essentially to COPD exacerbation. Noted her phy therapist and her medical oncologist out of [facility] in [facility]. The patient is known to have non-small cell lung cancer the patient was treated with a combination of chemoradiation therapy and the patient is currently on immunotherapy with Keytruda. She does have an acute RSV infection and the patient remainsOn today's blood work, the patient has no significant abnormalities. The white cell count is at 8 with a hemoglobin 9.8 and a platelet count of 188. The patient's sodium levels at 141, BUN is 23 with a creatinine of 0.8 and a potassium level of 5.1. LFTs are essentially within normal limits. The patient remains on DuoNeb nebulized treatments [id number]. The patient remains on IV Solu-Medrol 60 mg every 6 hours. At this point in time, she is afebrile, she is on 60s of oxygen by nasal cannula with a pulse ox of 99%. I reviewed the chest x-ray from the current admission and this x-ray was done on 01/07/2024 and there is no evidence of any acute cardiopulmonary process. There is emphysematous changes mainly involving the upper lobes and the patient has obvious hyperinflation. 01/09/2024, patient is less short of breath compared to yesterday and less bronchospastic and wheezy. Has a congested cough. Unable to bring up much sputum. White cell count is at 10 with a hemoglobin 8.9 and a platelet count of 193. Sodium is 142 with a BUN of 21 and a creatinine of 0.8 and a potassium level of 4.8. Remains essentially the same treatment. Remains on DuoNeb. Rem ains on IV Solu-Medrol. Empiric antibiotic coverage with IV Rocephin. No altered mentation. No chest pain. No other complaints otherwise for now. 01/10/2024, the patient is being seen for a follow-up. The patient is feeling better. Less bronchospastic and wheezy compared to yesterday. No new complaints. She remains on oxygen at 2 L/min nasal cannula. She is afebrile. Remains on bronchodilators and steroids. No specific complaints. No altered mentation. No encephalopathy. White cell count is at 9.5 with a hemoglobin 9.3 and a platelet count of 177. Electrolytes are all within normal limits. Procalcitonin level was at 0.11. Objective - Vital Signs Vital signs: Vital Signs Temp 98 F 01/10/24 07:27 Pulse 92 01/10/24 09:08 Resp 19 01/10/24 07:27 BP 145/69 01/10/24 07:27 Pulse Ox 97 01/10/24 08:54 FiO2 Intake & Output 01/09/24 01/10/24 01/10/24 18:59 06:59 18:59 Other: Voiding Method Bedside Commode # Voids 3 2 - Exam Mild to moderate respiratory distress, frequent cough, audible wheezing. Currently on 6 L nasal cannula. HEENT examination is grossly unremarkable. Mucous membranes are moist. No oral lesions. Neck supple. Full range of motion. No adenopathy thyromegaly or neck vein distention. Cardiovascular examination reveals regular rhythm rate. S1-S2 normal. No S3 or S4. No discernible murmur noted. Lungs reveal coarse bilateral inspiratory and expiratory wheezes and rhonchi. Breath sounds are equal bilaterally but diminished throughout. She coughs frequently. Abdomen soft bowel sounds are heard. No masses or tenderness. Extremities are intact. No cyanosis clubbing or edema. Skin is without rash or lesion. Neurologic examination is brief but nonfocal. - Labs CBC & Chem 7: 01/10/24 05:02 01/10/24 05:02 Labs: Abnormal Lab Results - Last 24 Hours (Table) 01/08/24 01/10/24 01/10/24 Range/Units 05:15 05:02 05:02 RBC 2.92 L (4.10-5.20) X 10*6/uL Hgb 9.3 L (12.0-15.0) g/dL Hct 29.8 L (37.2-46.3) % MCV 102.1 H (80.0-97.0) FL MCHC 31.2 L (32.0-37.0) g/dL RDW 17.1 H (11.5-14.5) % Immature Gran # 0.13 H (0.00-0.04) X 10*3/uL Neutrophils # 7.92 H (1.80-7.70) X 10*3/uL Lymphocytes # 0.49 L (0.90-5.00) X 10*3/uL Eosinophils # 0 L (0.04-0.35) X 10*3/uL BUN/Creatinine Ratio 26.00 H (12.00-20.00) Ratio Glucose 114 H (70-110) mg/dL Calcium 8.0 L (8.7-10.3) mg/dL RBC Folate 861 H (280 - 791) ng/mL Microbiology - Last 24 Hours (Table) 01/07/24 09:14 Blood Culture - Preliminary Blood 01/07/24 08:55 Blood Culture - Preliminary Blood Assessment and Plan Plan: Acute hypoxemic respiratory failure, secondary to COPD exacerbation, likely triggered by RSV infection. Oxygenation is stable and the patient remains on oxygen at 2 L/min nasal cannula with a pulse ox of 97% Acute on chronic shortness of breath secondary to COPD exacerbation/RSV infection, slowly improving and probably some mild clinical improvement is noted over the past 24 hours Acute RSV tracheobronchitis, no evidence of any pneumonia based on chest x-ray findings. History of non-small cell lung cancer, with previous chemotherapy and radiation therapy, now on immunotherapy with Keytruda. Previous history of 45 years of tobacco use. History of hypertension. Plan: Clinically improving and the patient is less short of breath compared to yesterday. Continue same treatment Titrate FiO2 as tolerated to maintain saturation above 90% Allow the patient to utilize her Trelegy Ellipta from home 1 puff a day DuoNeb nebulized treatments 4 times a day [id number] IV Solu-Medrol 60 mg every 6 hours and this will be continued for another 24 hours and the patient is going to be switched to oral prednisone as of tomorrow. Resume rest of the home medications Will continue to follow
[2024-01-10] MEDS: IPRATROPIUM-ALBUTEROL 3 ML NEB INHALATION SCH (21:31)
[2024-01-11] MEDS: SENNOSIDES-DOCUSATE SODIUM 1 EACH TAB PO PRN (06:32)
[2024-01-11] MEDS: predniSONE 20 MG TAB PO SCH (11:41)
--- NOTE | 2024-01-11 14:46 | P.PN ---
Subjective Progress Note Date: 01/11/24 73-year-old female with history of COPD, and lung cancer. The patient presented to the emergency department today, at 7:15 in the morning. The patient came in with complaints of 2 days worth of increasing shortness of breath, chest congestion, and cough. Everything seemed to get worse just yesterday. The patient does not use home oxygen. She is being treated with Trelegy, and albuterol for her COPD. She sees a physician in [place], [place], but the name of . The patient was diagnosed with non-small cell lung cancer, June 2023. She has had chemotherapy, radiation therapy, and now is on immunotherapy, with Keytruda. The patient smoked for 45 years, 1 pack a day. She does not s moke currently. Current labs include a white count 5.1, hemoglobin 11.1, hematocrit 34.5, and platelet count 217,000. Sodium 137, potassium 5.1, chlorides 107, CO2 24, BUN 19, creatinine 0.78. Glucose is 157. She did test positive for RSV. Chest x-ray shows hyperlucent upper lung hua, consistent with proximal acinar or centrilobular emphysema. on today's evaluation of 01/08/2024, the patient is being seen for a follow-up. This patient is known to have advanced COPD, and the patient has been maintained on Trelegy Ellipta on outpatient basis. The patient was hospitalized for worsening shortness of breath attributed essentially to COPD exacerbation. 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 The patient is known to have non-small cell lung cancer the patient was treated with a combination of chemoradiation therapy and the patient is currently on immunotherapy with Keytruda. She does have an acute RSV infection and the patient remainsOn today's blood work, the patient has no significant abnormalities. The white cell count is at 8 with a hemoglobin 9.8 and a platelet count of 188. The patient's sodium levels at 141, BUN is 23 with a creatinine of 0.8 and a potassium level of 5.1. LFTs are essentially within normal limits. The patient remains on DuoNeb nebulized treatments [id number]. The patient remains on IV Solu-Medrol 60 mg every 6 hours. At this point in time, she is afebrile, she is on 60s of oxygen by nasal cannula with a pulse ox of 99%. I reviewed the chest x-ray from the current admission and this x-ray was done on 01/07/2024 and there is no evidence of any acute cardiopulmonary process. There is emphysematous changes mainly involving the upper lobes and the patient has obvious hyperinflation. 01/09/2024, patient is less short of breath compared to yesterday and less bronchospastic and wheezy. Has a congested cough. Unable to bring up much sputum. White cell count is at 10 with a hemoglobin 8.9 and a platelet count of 193. Sodium is 142 with a BUN of 21 and a creatinine of 0.8 and a potassium level of 4.8. Remains essentially the same treatment. Remains on DuoNeb. Rem ains on IV Solu-Medrol. Empiric antibiotic coverage with IV Rocephin. No altered mentation. No chest pain. No other complaints otherwise for now. 01/10/2024, the patient is being seen for a follow-up. The patient is feeling better. Less bronchospastic and wheezy compared to yesterday. No new complaints. She remains on oxygen at 2 L/min nasal cannula. She is afebrile. Remains on bronchodilators and steroids. No specific complaints. No altered mentation. No encephalopathy. White cell count is at 9.5 with a hemoglobin 9.3 and a platelet count of 177. Electrolytes are all within normal limits. Procalcitonin level was at 0.11. 01/11/2024, the patient is being seen for a follow-up. Patient is doing well. No significant complaints for now. Will do a home O2 evaluation. The patient is less bronchospastic and wheezy as the patient is recovering from an acute COPD exacerbation related to SV infection. No chest pain. No altered mentation. Last echo is at 9.5 with a hemoglobin of 14 and a platelet count of 199. Electrolytes are all stable. She is in good spirits for now. She has no specific complaints. Objective - Vital Signs Vital signs: Vital Signs Temp 97.6 F 01/11/24 07:24 Pulse 76 01/11/24 07:24 Resp 18 01/11/24 01:13 BP 138/64 01/11/24 07:24 Pulse Ox 98 01/11/24 07:24 FiO2 Intake & Output 01/10/24 01/11/24 01/11/24 18:59 06:59 18:59 Intake Total 240 Balance 240 Intake: Oral 240 Other: Voiding Method Bedside Commode # Voids 3 2 - Exam Mild to moderate respiratory distress, frequent cough, audible wheezing. Currently on 6 L nasal cannula. HEENT examination is grossly unremarkable. Mucous membranes are moist. No oral lesions. Neck supple. Full range of motion. No adenopathy thyromegaly or neck vein distention. Cardiovascular examination reveals regular rhythm rate. S1-S2 normal. No S3 or S4. No discernible murmur noted. Lungs reveal coarse bilateral inspiratory and expiratory wheezes and rhonchi. Breath sounds are equal bilaterally but diminished throughout. She coughs frequently. Abdomen soft bowel sounds are heard. No masses or tenderness. Extremities are intact. No cyanosis clubbing or edema. Skin is without rash or lesion. Neurologic examination is brief but nonfocal. - Labs CBC & Chem 7: 01/10/24 05:02 01/10/24 05:02 Labs: Microbiology - Last 24 Hours (Table) 01/07/24 09:14 Blood Culture - Preliminary Blood 01/07/24 08:55 Blood Culture - Preliminary Blood Assessment and Plan Plan: Acute hypoxemic respiratory failure, secondary to COPD exacerbation, likely triggered by RSV infection. Oxygenation is stable and the patient remains on oxygen at 2 L/min nasal cannula with a pulse ox of 97%, clinically improving Acute on chronic shortness of breath secondary to COPD exacerbation/RSV infection, clinically improving Acute RSV tracheobronchitis, no evidence of any pneumonia based on chest x-ray findings. History of non-small cell lung cancer, with previous chemotherapy and radiation therapy, now on immunotherapy with Keytruda. Previous history of 45 years of tobacco use. History of hypertension. Plan: Clinically improving and the patient is less short of breath compared to yesterday. Continue same treatment Titrate FiO2 as tolerated to maintain saturation above 90% Allow the patient to utilize her Trelegy Ellipta from home 1 puff a day DuoNeb nebulized treatments 4 times a day [id number] Discontinued IV Solu-Medrol start the patient on prednisone burst taper Home O2 evaluation Possible discharge in the next 24 hours Will continue to follow
--- NOTE | 2024-01-12 01:01 | P.PN ---
Subjective Progress Note Date: 01/09/24 Patient is a 73-year-old female with known history of non-small lung cancer s/p chemotherapy and currently on immunotherapy and prior history of smoking presents to ER with complaints of difficulty breathing and cough with yellow sputum production. All her symptoms started yesterday afternoon and has been worsening which made her to come to ER. Denies any fever or chills. No complaints of nausea vomiting abdominal pain or diarrhea. Denies any recent illnesses or sick contacts. Patient was tachycar dic and hypertensive on admission and also requiring oxygen at present nonrebreather on admission. Chest x-ray showed no acute cardiopulmonary findings. Suspect COPD changes. Laboratory data showed WBC 5.1 hemoglobin 11.1 and platelets 217 Sodium 137 potassium 5.1 chloride 107 bicarb is 24 BUN 19 and creatinine 0.78 and blood sugar 157, AST 47 ALT 39 alk phos 90 RSV PCR positive 01/08/2024 Patient currently lying in the bed. Awake alert and oriented x 3. Lethargic and weak. Still requiring high flow oxygen at 6 L. Afebrile. No nausea or vomiting or diarrhea. No complaints of chest pain. Still having shortness of breath. Laboratory pressure WBC 8.0 hemoglobin 9.8 and platelets 188 Blood sugar 137 liver enzymes normalized. Patient has been continued on IV Solu-Medrol, DuoNebs and antibiotics of ceftriaxone. Blood cultures negative so far. Pulmonary is on board. Current medications reviewed. 01/09/2024 Patient is lying in the bed. Awake alert and oriented. Anxious and is also complaints of having shortness of breath. Still having diffuse wheezing and diminished sounds on exam. No complaints of chest pain. Patient has been afebrile. Cough without any sputum production. Her patient has been continued on IV Solu-Medrol DuoNebs and antibiotics empirically in the form of ceftriaxone. Laboratory test showed WBC 10.0 hemoglobin 8.9 and platelets 193 Blood sugar 124 and calcium 8.2. Current medications reviewed. Objective - Vital Signs Vital signs: Vital Signs Temp 98.0 F 01/09/24 20:00 Pulse 98 01/09/24 20:00 Resp 21 01/09/24 20:00 BP 138/54 01/09/24 20:00 Pulse Ox 97 01/09/24 20:00 FiO2 Intake & Output 01/09/24 01/09/24 01/10/24 06:59 18:59 06:59 Other: Voiding Method Bedside Commode # Voids 1 3 - Exam PHYSICAL EXAMINATION: Patient is lying in the bed, mild distress, awake alert and oriented.. HEENT: Normocephalic. Neck is supple. Pupils reactive. Nostrils clear. Oral cavity is moist. Neck reveals no JVD, carotid bruits, or thyromegaly. CHEST EXAMINATION: Trachea is central. Symmetrical expansion. Bilateral diffuse wheezing and diminished sounds.. CARDIAC: Normal S1, S2 with no gallops. No murmurs ABDOMEN: Soft. Bowel sounds normal. No organomegaly. No abdominal bruits. Extremities: reveal no edema. No clubbing or cyanosis Neurologically awake, alert, oriented x3 with well-coordinated movements. No focal deficits noted Skin: No rash or skin lesions. Psychiatric: Coperative. Nonsuicidal Musculoskeletal: No joint swelling or deformity. Normal range of motion. - Labs CBC & Chem 7: 01/10/24 05:02 01/10/24 05:02 Labs: Abnormal Lab Results - Last 24 Hours (Table) 01/08/24 01/09/24 01/09/24 Range/Units 05:15 04:52 04:52 WBC 10.02 H (4.50-10.00) X 10*3/uL RBC 2.79 L (4.10-5.20) X 10*6/uL Hgb 8.9 L (12.0-15.0) g/dL Hct 29.3 L (37.2-46.3) % MCV 105.0 H (80.0-97.0) FL MCHC 30.4 L (32.0-37.0) g/dL RDW 16.9 H (11.5-14.5) % Immature Gran # 0.06 H (0.00-0.04) X 10*3/uL Neutrophils # 7.92 H (1.80-7.70) X 10*3/uL Lymphocytes # 0.34 L (0.90-5.00) X 10*3/uL Monocytes # 1.69 H (0.20-1.00) X 10*3/uL Eosinophils # 0 L (0.04-0.35) X 10*3/uL BUN/Creatinine Ratio 27.12 H (12.00-20.00) Ratio Glucose 124 H (70-110) mg/dL Calcium 8.2 L (8.7-10.3) mg/dL RBC Folate 861 H (280 - 791) ng/mL Microbiology - Last 24 Hours (Table) 01/07/24 09:14 Blood Culture - Preliminary Blood 01/07/24 08:55 Blood Culture - Preliminary Blood Assessment and Plan Assessment: Acute hypoxic respiratory failure requiring nonrebreather on admission. Currently on 2 L oxygen via nasal cannula. Acute COPD exacerbation. Likely due to acute RSV infection Acute RSV infection Transaminitis. Resolved. Microcytic anemia with hemoglobin 11.1 History of non-small cell lung cancer status post chemoradiation and currently on Keytruda DVT prophylaxis with heparin subcu Plan: Patient will be continued on oxygen supplementation via nasal cannula. Currently on 6L-->2L oxygen via nasal cannula. Continue with IV Solu-Medrol DuoNebs and antibiotics of ceftriaxone. Procalcitonin level 0.11 Pulmonary is on board.. Current with home medications and follow-up closely.
--- NOTE | 2024-01-12 01:03 | P.PN ---
Subjective Progress Note Date: 01/10/24 Patient is a 73-year-old female with known history of non-small lung cancer s/p chemotherapy and currently on immunotherapy and prior history of smoking presents to ER with complaints of difficulty breathing and cough with yellow sputum production. All her symptoms started yesterday afternoon and has been worsening which made her to come to ER. Denies any fever or chills. No complaints of nausea vomiting abdominal pain or diarrhea. Denies any recent illnesses or sick contacts. Patient was tachycar dic and hypertensive on admission and also requiring oxygen at present nonrebreather on admission. Chest x-ray showed no acute cardiopulmonary findings. Suspect COPD changes. Laboratory data showed WBC 5.1 hemoglobin 11.1 and platelets 217 Sodium 137 potassium 5.1 chloride 107 bicarb is 24 BUN 19 and creatinine 0.78 and blood sugar 157, AST 47 ALT 39 alk phos 90 RSV PCR positive 01/08/2024 Patient currently lying in the bed. Awake alert and oriented x 3. Lethargic and weak. Still requiring high flow oxygen at 6 L. Afebrile. No nausea or vomiting or diarrhea. No complaints of chest pain. Still having shortness of breath. Laboratory pressure WBC 8.0 hemoglobin 9.8 and platelets 188 Blood sugar 137 liver enzymes normalized. Patient has been continued on IV Solu-Medrol, DuoNebs and antibiotics of ceftriaxone. Blood cultures negative so far. Pulmonary is on board. Current medications reviewed. 01/09/2024 Patient is lying in the bed. Awake alert and oriented. Anxious and is also complaints of having shortness of breath. Still having diffuse wheezing and diminished sounds on exam. No complaints of chest pain. Patient has been afebrile. Cough without any sputum production. Her patient has been continued on IV Solu-Medrol DuoNebs and antibiotics empirically in the form of ceftriaxone. Laboratory test showed WBC 10.0 hemoglobin 8.9 and platelets 193 Blood sugar 124 and calcium 8.2. 01/10/2024 Patient is awake alert and oriented. No complaints of chest pain. Shortness of breath he is improving. No nausea vomiting or abdominal pain. Currently on 2 L oxygen via nasal cannula. Mentation is also much improved. No headache or dizziness. Laboratory data showed WBC 9.4 hemoglobin 9.3 and platelets 499 other laboratory data reviewed. Blood sugars 114. Patient remains on IV Solu- Medrol DuoNebs and antibiotics empirically level of ceftriaxone. Current medications reviewed. Objective - Vital Signs Vital signs: Vital Signs Temp 98.8 F 01/10/24 19:31 Pulse 91 01/10/24 21:38 Resp 18 01/10/24 21:38 BP 123/63 01/10/24 19:31 Pulse Ox 99 01/10/24 19:31 FiO2 Intake & Output 01/10/24 01/10/24 01/11/24 06:59 18:59 06:59 Other: Voiding Method Bedside Commode # Voids 2 3 - Exam PHYSICAL EXAMINATION: Patient is lying in the bed, mild distress, awake alert and oriented.. HEENT: Normocephalic. Neck is supple. Pupils reactive. Nostrils clear. Oral cavity is moist. Neck reveals no JVD, carotid bruits, or thyromegaly. CHEST EXAMINATION: Trachea is central. Symmetrical expansion. Bilateral expiratory wheezing and basilar diminished sounds.. CARDIAC: Normal S1, S2 with no gallops. No murmurs ABDOMEN: Soft. Bowel sounds normal. No organomegaly. No abdominal bruits. Extremities: reveal no edema. No clubbing or cyanosis Neurologically awake, alert, oriented x3 with well-coordinated movements. No fo carlos deficits noted Skin: No rash or skin lesions. Psychiatric: Coperative. Nonsuicidal Musculoskeletal: No joint swelling or deformity. Normal range of motion. - Labs CBC & Chem 7: 01/10/24 05:02 01/10/24 05:02 Labs: Abnormal Lab Results - Last 24 Hours (Table) 01/10/24 01/10/24 Range/Units 05:02 05:02 RBC 2.92 L (4.10-5.20) X 10*6/uL Hgb 9.3 L (12.0-15.0) g/dL Hct 29.8 L (37.2-46.3) % MCV 102.1 H (80.0-97.0) FL MCHC 31.2 L (32.0-37.0) g/dL RDW 17.1 H (11.5-14.5) % Immature Gran # 0.13 H (0.00-0.04) X 10*3/uL Neutrophils # 7.92 H (1.80-7.70) X 10*3/uL Lymphocytes # 0.49 L (0.90-5.00) X 10*3/uL Eosinophils # 0 L (0.04-0.35) X 10*3/uL BUN/Creatinine Ratio 26.00 H (12.00-20.00) Ratio Glucose 114 H (70-110) mg/dL Calcium 8.0 L (8.7-10.3) mg/dL Microbiology - Last 24 Hours (Table) 01/07/24 09:14 Blood Culture - Preliminary Blood 01/07/24 08:55 Blood Culture - Preliminary Blood Assessment and Plan Assessment: Acute hypoxic respiratory failure requiring nonrebreather on admission. Currently on 2 L oxygen via nasal cannula. Acute COPD exacerbation. Likely due to acute RSV infection Acute RSV infection Transaminitis. Resolved. Microcytic anemia with hemoglobin 11.1 History of non-small cell lung cancer status post chemoradiation and currently on Keytruda DVT prophylaxis with heparin subcu Plan: Patient will be continued on oxygen supplementation via nasal cannula. Currently on 6L-->2L oxygen via nasal cannula. Continue with IV Solu-Medrol DuoNebs and antibiotics of ceftriaxone. Procalcitonin level 0.11 Pulmonary is on board.. Current with home medications and follow-up closely.
--- NOTE | 2024-01-12 01:05 | P.PN ---
Subjective Progress Note Date: 01/11/24 Patient is a 73-year-old female with known history of non-small lung cancer s/p chemotherapy and currently on immunotherapy and prior history of smoking presents to ER with complaints of difficulty breathing and cough with yellow sputum production. All her symptoms started yesterday afternoon and has been worsening which made her to come to ER. Denies any fever or chills. No complaints of nausea vomiting abdominal pain or diarrhea. Denies any recent illnesses or sick contacts. Patient was tachycar dic and hypertensive on admission and also requiring oxygen at present nonrebreather on admission. Chest x-ray showed no acute cardiopulmonary findings. Suspect COPD changes. Laboratory data showed WBC 5.1 hemoglobin 11.1 and platelets 217 Sodium 137 potassium 5.1 chloride 107 bicarb is 24 BUN 19 and creatinine 0.78 and blood sugar 157, AST 47 ALT 39 alk phos 90 RSV PCR positive 01/08/2024 Patient currently lying in the bed. Awake alert and oriented x 3. Lethargic and weak. Still requiring high flow oxygen at 6 L. Afebrile. No nausea or vomiting or diarrhea. No complaints of chest pain. Still having shortness of breath. Laboratory pressure WBC 8.0 hemoglobin 9.8 and platelets 188 Blood sugar 137 liver enzymes normalized. Patient has been continued on IV Solu-Medrol, DuoNebs and antibiotics of ceftriaxone. Blood cultures negative so far. Pulmonary is on board. Current medications reviewed. 01/09/2024 Patient is lying in the bed. Awake alert and oriented. Anxious and is also complaints of having shortness of breath. Still having diffuse wheezing and diminished sounds on exam. No complaints of chest pain. Patient has been afebrile. Cough without any sputum production. Her patient has been continued on IV Solu-Medrol DuoNebs and antibiotics empirically in the form of ceftriaxone. Laboratory test showed WBC 10.0 hemoglobin 8.9 and platelets 193 Blood sugar 124 and calcium 8.2. 01/10/2024 Patient is awake alert and oriented. No complaints of chest pain. Shortness of breath he is improving. No nausea vomiting or abdominal pain. Currently on 2 L oxygen via nasal cannula. Mentation is also much improved. No headache or dizziness. Laboratory data showed WBC 9.4 hemoglobin 9.3 and platelets 499 other laboratory data reviewed. Blood sugars 114. Patient remains on IV Solu- Medrol DuoNebs and antibiotics empirically level of ceftriaxone. 01/11/2024 Patient is currently lying in the bed. Able to sit on the side of the bed. No complaints of chest pain or shortness of breath. Patient is having mild expiratory wheezing and basilar diminished sounds. Patient is being continued on IV Solu-Medrol, DuoNebs and empiric antibiotics with ceftriaxone. Patient desaturated to 88% on room air. Currently on 2 L oxygen via nasal cannula. No new laboratory data today. Patient may need home oxygen relation and anticipate discharge in the next 24 hours. Pulmonary is on board. Current medications reviewed. Objective - Vital Signs Vital signs: Vital Signs Temp 97.8 F 01/11/24 19:47 Pulse 96 01/11/24 21:23 Resp 18 01/11/24 19:47 BP 145/62 01/11/24 19:47 Pulse Ox 99 01/11/24 19:47 FiO2 Intake & Output 01/11/24 01/11/24 01/12/24 06:59 18:59 06:59 Intake Total 476 Balance 476 Intake: Oral 476 Other: Voiding Method Bedside Commode # Voids 2 - Exam PHYSICAL EXAMINATION: Patient is lying in the bed, mild distress, awake alert and oriented.. HEENT: Normocephalic. Neck is supple. Pupils reactive. Nostrils clear. Oral cavity is moist. Neck reveals no JVD, carotid bruits, or thyromegaly. CHEST EXAMINATION: Trachea is central. Symmetrical expansion. Bilateral expiratory wheezing and basilar diminished sounds.. CARDIAC: Normal S1, S2 with no gallops. No murmurs ABDOMEN: Soft. Bowel sounds normal. No organomegaly. No abdominal bruits. Extremities: reveal no edema. No clubbing or cyanosis Neurologically awake, alert, oriented x3 with well-coordinated movements. No fo carlos deficits noted Skin: No rash or skin lesions. Psychiatric: Coperative. Nonsuicidal Musculoskeletal: No joint swelling or deformity. Normal range of motion. - Labs CBC & Chem 7: 01/10/24 05:02 01/10/24 05:02 Assessment and Plan Assessment: Acute hypoxic respiratory failure requiring nonrebreather on admission. Currently on 2 L oxygen via nasal cannula. Acute COPD exacerbation. Likely due to acute RSV infection Acute RSV infection Transaminitis. Resolved. Microcytic anemia with hemoglobin 11.1 History of non-small cell lung cancer status post chemoradiation and currently on Keytruda DVT prophylaxis with heparin subcu Plan: Patient will be continued on oxygen supplementation via nasal cannula. C urrently on 6L-->2L oxygen via nasal cannula. Continue with IV Solu-Medrol DuoNebs and antibiotics of ceftriaxone. Procalcitonin level 0.11 Pulmonary is on board.. Current with home medications and follow-up closely.
[2024-01-12] MEDS: ERGOCALCIFEROL 1,250 MCG (50,000 IU) CAPSULE PO SCH (08:20)
[2024-01-12 10:29] LABS: HCT 29.9 % (37.2-46.3); HGB 9.5 g/dL (12.0-15.0); MCH 32.3 pg (27.0-32.0); MCHC 31.8 g/dL (32.0-37.0); MCV 101.7 FL (80.0-97.0); Mean Platelet Volume 10.9 FL (9.5-12.2); NRBC Per 100 WBC 0.05 X 10*3/uL (0.00-0.01); Platelet Count 274 X 10*3/uL (140-440); RBC 2.94 X 10*6/uL (4.10-5.20); WBC 10.17 X 10*3/uL (4.50-10.00)
[2024-01-12 10:36] LABS: BUN/Creat Ratio 21.62 Ratio (12.00-20.00); Blood Urea Nitrogen 17.3 mg/dL (9.0-27.0); Carbon Dioxide 27.4 mmol/L (21.6-31.8); Chloride 104 mmol/L (96-109); Glucose 94 mg/dL (70-110); Sodium 141 mmol/L (135-145)
[2024-01-12 11:04] LABS: Basophils # (A) 0.07 X 10*3/uL (0.00-0.10); Basophils % (A) 0.7 %; Eosinophils # (A) 0.01 X 10*3/uL (0.04-0.35); Eosinophils % (A) 0.1 %; Lymphocytes # (A) 1.62 X 10*3/uL (0.90-5.00); Lymphocytes % (A) 15.9 %; Monocytes # (A) 1.59 X 10*3/uL (0.20-1.00); Monocytes % (A) 15.6 %; Neutrophils # (A) 6.51 X 10*3/uL (1.80-7.70); Neutrophils % (A) 64.1 %
[2024-01-12 14:01] VITALS: BMI 20.7
--- NOTE | 2024-01-12 14:31 | P.PN ---
Subjective Progress Note Date: 01/12/24 73-year-old female with history of COPD, and lung cancer. The patient presented to the emergency department today, at 7:15 in the morning. The patient came in with complaints of 2 days worth of increasing shortness of breath, chest congestion, and cough. Everything seemed to get worse just yesterday. The patient does not use home oxygen. She is being treated with Trelegy, and albuterol for her COPD. She sees a physician in [place], [place], but the name of . The patient was diagnosed with non-small cell lung cancer, June 2023. She has had chemotherapy, radiation therapy, and now is on immunotherapy, with Keytruda. The patient smoked for 45 years, 1 pack a day. She does not s moke currently. Current labs include a white count 5.1, hemoglobin 11.1, hematocrit 34.5, and platelet count 217,000. Sodium 137, potassium 5.1, chlorides 107, CO2 24, BUN 19, creatinine 0.78. Glucose is 157. She did test positive for RSV. Chest x-ray shows hyperlucent upper lung hua, consistent with proximal acinar or centrilobular emphysema. on today's evaluation of 01/08/2024, the patient is being seen for a follow-up. This patient is known to have advanced COPD, and the patient has been maintained on Trelegy Ellipta on outpatient basis. The patient was hospitalized for worsening shortness of breath attributed essentially to COPD exacerbation. Noted her memory care program resident and her medical oncologist out of [facility] in [facility]. The patient is known to have non-small cell lung cancer the patient was treated with a combination of chemoradiation therapy and the patient is currently on immunotherapy with Keytruda. She does have an acute RSV infection and the patient remainsOn today's blood work, the patient has no significant abnormalities. The white cell count is at 8 with a hemoglobin 9.8 and a platelet count of 188. The patient's sodium levels at 141, BUN is 23 with a creatinine of 0.8 and a potassium level of 5.1. LFTs are essentially within normal limits. The patient remains on DuoNeb nebulized treatments [id number]. The patient remains on IV Solu-Medrol 60 mg every 6 hours. At this point in time, she is afebrile, she is on 60s of oxygen by nasal cannula with a pulse ox of 99%. I reviewed the chest x-ray from the current admission and this x-ray was done on 01/07/2024 and there is no evidence of any acute cardiopulmonary process. There is emphysematous changes mainly involving the upper lobes and the patient has obvious hyperinflation. 01/09/2024, patient is less short of breath compared to yesterday and less bronchospastic and wheezy. Has a congested cough. Unable to bring up much sputum. White cell count is at 10 with a hemoglobin 8.9 and a platelet count of 193. Sodium is 142 with a BUN of 21 and a creatinine of 0.8 and a potassium level of 4.8. Remains essentially the same treatment. Remains on DuoNeb. Rem ains on IV Solu-Medrol. Empiric antibiotic coverage with IV Rocephin. No altered mentation. No chest pain. No other complaints otherwise for now. 01/10/2024, the patient is being seen for a follow-up. The patient is feeling better. Less bronchospastic and wheezy compared to yesterday. No new complaints. She remains on oxygen at 2 L/min nasal cannula. She is afebrile. Remains on bronchodilators and steroids. No specific complaints. No altered mentation. No encephalopathy. White cell count is at 9.5 with a hemoglobin 9.3 and a platelet count of 177. Electrolytes are all within normal limits. Procalcitonin level was at 0.11. 01/11/2024, the patient is being seen for a follow-up. Patient is doing well. No significant complaints for now. Will do a home O2 evaluation. The patient is less bronchospastic and wheezy as the patient is recovering from an acute COPD exacerbation related to SV infection. No chest pain. No altered mentation. Last echo is at 9.5 with a hemoglobin of 14 and a platelet count of 199. Electrolytes are all stable. She is in good spirits for now. She has no specific complaints. On 01/12/2024, no new complaints and the patient is essentially stable. The patient was taken off the IV Solu-Medrol started on a prednisone burst taper at a dose of 40 mg p.o. daily. Home O2 evaluation will be done. Pulse ox is currently 84% on room air oxygen on 1 L her pulse ox comes up to 92%. Hemoglobin is at 9.5 with a white cell count of 10 and a platelet count of 274. Rest of the electrolytes are all within normal limits. The patient is a case of COPD and she encountered an acute Exacerbation due to an RSV infection. At the same time, the patient is known to have an underlying lung cancer which is being treated on outpatient basis. The patient is known to have non-small cell lung cancer and currently she is on immunotherapy with Keytruda. She has [id number] smoking history. The patient has been maintained on Trelegy Ellipta on outpatient basis and she has a home nebulizer. Objective - Vital Signs Vital signs: Vital Signs Temp 98 F 01/12/24 13:51 Pulse 88 01/12/24 13:51 Resp 21 01/12/24 13:51 BP 144/67 01/12/24 13:51 Pulse Ox 95 01/12/24 13:51 FiO2 Intake & Output 01/11/24 01/12/24 01/12/24 18:59 06:59 18:59 Intake Total 476 Balance 476 Weight 49.895 kg Intake: Oral 476 Other: Voiding Method Bedside Commode Bedside Commode # Voids 1 - Exam Mild to moderate respiratory distress, frequent cough, audible wheezing. Currently on 1 L of oxygen by nasal cannula. No significant shortness of breath at rest. She has pursed lip breathing. HEENT examination is grossly unremarkable. Mucous membranes are moist. No oral lesions. Neck supple. Full range of motion. No adenopathy thyromegaly or neck vein distention. Cardiovascular examination reveals regular rhythm rate. S1-S2 normal. No S3 or S4. No discernible murmur noted. Lungs reveal coarse bilateral inspiratory and expiratory wheezes and rhonchi. Breath sounds are equal bilaterally but diminished throughout. The patient's coughing has subsided significantly. There is improved air entry bilaterally. Abdomen soft bowel sounds are heard. No masses or tenderness. Extremities are intact. No cyanosis clubbing or edema. Skin is without rash or lesion. Neurologic examination is brief but nonfocal. - Labs CBC & Chem 7: 01/12/24 06:45 01/12/24 06:45 Labs: Abnormal Lab Results - Last 24 Hours (Table) 01/12/24 01/12/24 Range/Units 06:45 06:45 WBC 10.17 H (4.50-10.00) X 10*3/uL RBC 2.94 L (4.10-5.20) X 10*6/uL Hgb 9.5 L (12.0-15.0) g/dL Hct 29.9 L (37.2-46.3) % MCV 101.7 H (80.0-97.0) FL MCH 32.3 H (27.0-32.0) pg MCHC 31.8 L (32.0-37.0) g/dL RDW 17.0 H (11.5-14.5) % Immature Gran # 0.37 H (0.00-0.04) X 10*3/uL Monocytes # 1.59 H (0.20-1.00) X 10*3/uL Eosinophils # 0.01 L (0.04-0.35) X 10*3/uL NRBC/100 WBC Diff 0.05 H (0.00-0.01) X 10*3/uL BUN/Creatinine Ratio 21.62 H (12.00-20.00) Ratio Calcium 8.0 L (8.7-10.3) mg/dL Assessment and Plan Plan: Acute hypoxemic respiratory failure, secondary to COPD exacerbation, likely triggered by RSV infection. Oxygenation is stable and the patient remains on oxygen at 1 L/min nasal cannula with a pulse ox of 97%, clinically improving Acute on chronic shortness of breath secondary to COPD exacerbation/RSV infect ion, clinically improving Acute RSV tracheobronchitis, no evidence of any pneumonia based on chest x-ray findings. History of non-small cell lung cancer, with previous chemotherapy and radiation therapy, now on immunotherapy with Keytruda. Previous history of 45 years of tobacco use. History of hypertension. Plan: Home O2 evaluation was done and the patient qualifies for home O2. Pulse ox on room air is 84% and 1 L she is up to 92%. She will need a home concentrator and portable tanks. This will be arranged for the patient. Clinically the patient continues to improve. She seems to be less short of breath. Continue same treatment The patient was started on prednisone burst taper and currently is on 40 mg p.o. daily. Allow the patient to utilize her Trelegy Ellipta from home 1 puff a day DuoNeb nebulized treatments 4 times a day [id number] Outpatient follow-up with oncology and pulmonology. The patient lives in the [facility]. Her oncologist also [facility]. Possible discharge in the next 24 hours Will continue to follow
--- NOTE | 2024-01-13 05:03 | P.PN ---
Subjective Progress Note Date: 01/12/24 Patient is a 73-year-old female with known history of non-small lung cancer s/p chemotherapy and currently on immunotherapy and prior history of smoking presents to ER with complaints of difficulty breathing and cough with yellow sputum production. All her symptoms started yesterday afternoon and has been worsening which made her to come to ER. Denies any fever or chills. No complaints of nausea vomiting abdominal pain or diarrhea. Denies any recent illnesses or sick contacts. Patient was tachycar dic and hypertensive on admission and also requiring oxygen at present nonrebreather on admission. Chest x-ray showed no acute cardiopulmonary findings. Suspect COPD changes. Laboratory data showed WBC 5.1 hemoglobin 11.1 and platelets 217 Sodium 137 potassium 5.1 chloride 107 bicarb is 24 BUN 19 and creatinine 0.78 and blood sugar 157, AST 47 ALT 39 alk phos 90 RSV PCR positive 01/08/2024 Patient currently lying in the bed. Awake alert and oriented x 3. Lethargic and weak. Still requiring high flow oxygen at 6 L. Afebrile. No nausea or vomiting or diarrhea. No complaints of chest pain. Still having shortness of breath. Laboratory pressure WBC 8.0 hemoglobin 9.8 and platelets 188 Blood sugar 137 liver enzymes normalized. Patient has been continued on IV Solu-Medrol, DuoNebs and antibiotics of ceftriaxone. Blood cultures negative so far. Pulmonary is on board. Current medications reviewed. 01/09/2024 Patient is lying in the bed. Awake alert and oriented. Anxious and is also complaints of having shortness of breath. Still having diffuse wheezing and diminished sounds on exam. No complaints of chest pain. Patient has been afebrile. Cough without any sputum production. Her patient has been continued on IV Solu-Medrol DuoNebs and antibiotics empirically in the form of ceftriaxone. Laboratory test showed WBC 10.0 hemoglobin 8.9 and platelets 193 Blood sugar 124 and calcium 8.2. 01/10/2024 Patient is awake alert and oriented. No complaints of chest pain. Shortness of breath he is improving. No nausea vomiting or abdominal pain. Currently on 2 L oxygen via nasal cannula. Mentation is also much improved. No headache or dizziness. Laboratory data showed WBC 9.4 hemoglobin 9.3 and platelets 499 other laboratory data reviewed. Blood sugars 114. Patient remains on IV Solu- Medrol DuoNebs and antibiotics empirically level of ceftriaxone. 01/11/2024 Patient is currently lying in the bed. Able to sit on the side of the bed. No complaints of chest pain or shortness of breath. Patient is having mild expiratory wheezing and basilar diminished sounds. Patient is being continued on IV Solu-Medrol, DuoNebs and empiric antibiotics with ceftriaxone. Patient desaturated to 88% on room air. Currently on 2 L oxygen via nasal cannula. No new laboratory data today. Patient may need home oxygen relation and anticipate discharge in the next 24 hours. Pulmonary is on board. 01/12/2024 Patient is seen in follow-up today with pulmonary following and maintained on 1 L via nasal cannula. Home O2 evaluation being performed as patient will likely need on discharge to manage COPD. Patient is continued on IV steroids along with DuoNebs and empiric antibiotics with pulmonary following closely. Patient to follow-up with pulmonary outpatient and has been cleared by pulmonary. Patient is extremely dyspneic with minimal exertion while having conversation. Patient encouraged to increase activity as tolerated and continue current regimen and monitor overnight with possible discharge planning in 24 hours. Patient will be going home with daughter once stable. Review of systems: Constitutional: No reports of fatigue, fever, or chills Cardiovascular: No reports of chest pain or palpitations Respiratory: reports of shortness of breath with exertion and continued occasional cough GI: No reports of nausea, vomiting, or diarrhea : No reports of dysuria or retention Neurovascular: No reports of weakness or numbness All medications have been reviewed PHYSICAL EXAMINATION: Patient is lying in the bed, mild distress appears dyspneic on exam, awake alert and oriented.. Well-developed, elderly appearing, thin built HEENT: Normocephalic. Neck is supple. Pupils reactive. Nostrils clear. Oral cavity is moist. Neck reveals no JVD, carotid bruits, or thyromegaly. CHEST EXAMINATION: Trachea is central. Symmetrical expansion. Bilateral expiratory wheezing and basilar diminished sounds.. CARDIAC: Normal S1, S2 with no gallops. No murmurs ABDOMEN: Soft. Bowel sounds normal. No organomegaly. No abdominal bruits. Extremities: reveal no edema. No clubbing or cyanosis Neurologically awake, alert, oriented x3 with well-coordinated movements. No focal deficits noted Skin: No rash or skin lesions. Psychiatric: Cooperative. Non-suicidal Musculoskeletal: No joint swelling or deformity. Normal range of motion. Assessment: Acute hypoxic respiratory failure requiring nonrebreather on admission. Currently on 2 L oxygen via nasal cannula. Acute COPD exacerbation. Likely due to acute RSV infection Acute RSV infection Transaminitis. Resolved. Microcytic anemia with hemoglobin 11.1 History of non-small cell lung cancer status post chemoradiation and currently on Keytruda DVT prophylaxis with heparin subcu Plan: Patient will be continued on oxygen supplementation via nasal cannula. Currently on 1L oxygen via nasal cannula although appears to be dyspneic with conversation on exam. Home O2 evaluation done and patient will require oxygen to manage COPD. Social work following working on discharge planning and arranging for home O2 Continue with IV Solu-Medrol DuoNebs and antibiotics of ceftriaxone. Procalcitonin level 0.11. Will transition to prednisone taper and close outpatient follow-up with pulmonary Home medications reviewed and resumed as appropriate. Will monitor overnight with possible discharge planning in the next 24 hours The impression and plan of care has been dictated by aMri Montoya, Nurse Practitioner as directed. Dr. Enoch MD I have performed a history and examination and MDM of this patient, discussed the same with the dictator, and agree with the dictator's assessment and plan as written ,documented as a scribe. Based on total visit time, I have performed more than 50% of the visit. Objective - Vital Signs Vital signs: Vital Signs Temp 98 F 01/12/24 13:51 Pulse 88 01/12/24 13:51 Resp 21 01/12/24 13:51 BP 144/67 01/12/24 13:51 Pulse Ox 95 01/12/24 13:51 FiO2 Intake & Output 01/11/24 01/12/24 01/12/24 18:59 06:59 18:59 Intake Total 476 Balance 476 Weight 49.895 kg Intake: Oral 476 Other: Voiding Method Bedside Commode Bedside Commode # Voids 1 - Labs CBC & Chem 7: 01/12/24 06:45 01/12/24 06:45 Labs: Abnormal Lab Results - Last 24 Hours (Table) 01/12/24 01/12/24 Range/Units 06:45 06:45 WBC 10.17 H (4.50-10.00) X 10*3/uL RBC 2.94 L (4.10-5.20) X 10*6/uL Hgb 9.5 L (12.0-15.0) g/dL Hct 29.9 L (37.2-46.3) % MCV 101.7 H (80.0-97.0) FL MCH 32.3 H (27.0-32.0) pg MCHC 31.8 L (32.0-37.0) g/dL RDW 17.0 H (11.5-14.5) % Immature Gran # 0.37 H (0.00-0.04) X 10*3/uL Monocytes # 1.59 H (0.20-1.00) X 10*3/uL Eosinophils # 0.01 L (0.04-0.35) X 10*3/uL NRBC/100 WBC Diff 0.05 H (0.00-0.01) X 10*3/uL BUN/Creatinine Ratio 21.62 H (12.00-20.00) Ratio Calcium 8.0 L (8.7-10.3) mg/dL
--- NOTE | 2024-01-13 05:06 | P.DS ---
Providers Date of admission: 01/07/24 09:07 Expected date of discharge: 01/12/24 Attending physician: Nicolas Brennan Consults: 01/07/24 09:07 Consult Physician Routine Consulting Provider: Elie Washington Consult Reason/Comments: copd Do you want consulting provider notified?: Yes Primary care physician: Physician Nonstaff Hospital Course: Final diagnosis Acute hypoxic respiratory failure requiring nonrebreather on admission. Currently on 2 L oxygen via nasal cannula. Acute COPD exacerbation. Likely due to acute RSV infection Acute RSV infection Transaminitis. Resolved. Microcytic anemia with hemoglobin 11.1 History of non-small cell lung cancer status post chemoradiation and currently on Keytruda DVT prophylaxis with heparin subcu GI prophylaxis Full code Discharge disposition Patient is being discharged in a stable condition with guarded prognosis to home. Patient will follow-up with Dr. Amador in the outpatient setting upon discharge. Patient is to continue with supplemental oxygen and a prednisone taper and close outpatient follow-up with pulmonary as scheduled. Total time taken is greater than 35 minutes. Hospital course This is a 73-year-old female who was recently admitted with increased shortness of breath with acute hypoxic respiratory failure found to have RSV as well as COPD exacerbation. Patient being closely monitored requiring oxygen along with [id number] DuoNeb treatments and IV steroids with pulmonary following closely. Patient having some shortness of breath with exertion and evaluated for home O2 and will require on discharge to manage COPD. Again patient will need close outpatient follow-up with pulmonary in the outpatient setting. Currently no reports of chest pain, shortness of breath, or palpitations. Kenneth conde is afebrile. No reports of nausea or vomiting and patient is tolerating diet. Patient will be discharged home today. guarded prognosis and high risk for readmission Physical exam: Gen: This is a 73-year-old female who is awake, alert and oriented x 3, thin built, elderly appearing, dyspneic on exam HEENT: Head is atraumatic, normocephalic. Pupils equal, round. Sclerae is anicteric. NECK: Supple. No JVD. No lymphadenopathy. No thyromegaly. LUNGS: Diminished breath sounds bilaterally with some scattered rhonchi and expiratory wheezing noted. Less bronchospastic on exam. Dyspneic with conversation. No intercostal retractions. HEART: Regular rate and rhythm. No murmur. ABDOMEN: Soft. Bowel sounds are present. No masses. No tenderness. EXTREMITIES: No pedal edema. No calf tenderness. NEUROLOGICAL: Patient is awake, alert and oriented x3. Cranial nerves 2 through 12 are grossly intact. Please refer to medication reconciliation sheet for a list of medications. The impression and plan of care has been dictated by Mari Montoya, Nurse Practitioner as directed. Dr. Enoch MD I have performed a history and examination and MDM of this patient, discussed with the dictator, and agree with the dictator's assessment and plan as written ,documented as a scribe. Based on total visit time, I have performed more than 50% of the visit. Patient Condition at Discharge: Fair Plan - Discharge Summary New Discharge Prescriptions: New predniSONE See Taper PO DIRECTED 12 Days #30 tab Continue lisinopriL [Zestril] 5 mg PO DAILY Sertraline HCl [Zoloft] 50 mg PO HS Sennosides/Docusate Sodium [Senna Plus 8.6-50 mg Tablet] 1 tab PO DAILY PRN PRN Reason: Constipation OLANZapine [ZyPREXA] 5 mg PO DIRECTED@2099 Lidocaine-Prilocaine Cream [Emla Cream 2.5%/2.5%] 1 applic TOPICAL DIRECTED PRN PRN Reason: port access Pembrolizumab [Keytruda] 200 mg IV Q21D Ergocalciferol [Vitamin D2 (1250 Mcg = 36957 Iu)] 1,250 mcg PO FR Omeprazole 20 mg PO DAILY Folic Acid 1 mg PO DAILY Discontinued dexAMETHasone [Decadron] 4 mg PO DIRECTED Discharge Medication List Ergocalciferol [Vitamin D2 (1250 Mcg = 17988 Iu)] 1,250 mcg PO FR 01/07/24 [History] Folic Acid 1 mg PO DAILY 01/07/24 [History] Lidocaine-Prilocaine Cream [Emla Cream 2.5%/2.5%] 1 applic TOPICAL DIRECTED PRN 01/07/24 [History] OLANZapine [ZyPREXA] 5 mg PO DIRECTED@209901/07/24 [History] Omeprazole 20 mg PO DAILY 01/07/24 [History] Sennosides/Docusate Sodium [Senna Plus 8.6-50 mg Tablet] 1 tab PO DAILY PRN 01/07/24 [History] Sertraline HCl [Zoloft] 50 mg PO HS 01/07/24 [History] lisinopriL [Zestril] 5 mg PO DAILY 01/07/24 [History] Pembrolizumab [Keytruda] 200 mg IV Q21D 01/08/24 [History] predniSONE See Taper PO DIRECTED 12 Days #30 tab 01/11/24 [Rx] Follow up Appointment(s)/Referral(s): Ole Amador MD [STAFF PHYSICIAN] - 3 Days [facility] [NON-STAFF] - 1 Week (Call [facility] when you get home and they will deliver yor concentrator) Gabby Veliz MD [STAFF PHYSICIAN] - 1 Week Activity/Diet/Wound Care/Special Instructions: Activity limited until follow-up Follow-up with primary care provider on discharge Follow-up with pulmonary outpatient Continue medications as prescribed Discharge Disposition: HOME SELF-CARE
[2024-01-13] MEDS: methylPREDNISolone SOD SUCCI 125 MG/2 ML VIAL IV SCH (11:33)
--- NOTE | 2024-01-13 14:17 | P.PN ---
Subjective Progress Note Date: 01/13/24 73-year-old female with history of COPD, and lung cancer. The patient presented to the emergency department today, at 7:15 in the morning. The patient came in with complaints of 2 days worth of increasing shortness of breath, chest congestion, and cough. Everything seemed to get worse just yesterday. The patient does not use home oxygen. She is being treated with Trelegy, and albuterol for her COPD. She sees a physician in [place], [place], but the name of . The patient was diagnosed with non-small cell lung cancer, June 2023. She has had chemotherapy, radiation therapy, and now is on immunotherapy, with Keytruda. The patient smoked for 45 years, 1 pack a day. She does not s moke currently. Current labs include a white count 5.1, hemoglobin 11.1, hematocrit 34.5, and platelet count 217,000. Sodium 137, potassium 5.1, chlorides 107, CO2 24, BUN 19, creatinine 0.78. Glucose is 157. She did test positive for RSV. Chest x-ray shows hyperlucent upper lung hua, consistent with proximal acinar or centrilobular emphysema. on today's evaluation of 01/08/2024, the patient is being seen for a follow-up. This patient is known to have advanced COPD, and the patient has been maintained on Trelegy Ellipta on outpatient basis. The patient was hospitalized for worsening shortness of breath attributed essentially to COPD exacerbation. Noted her director of photography and her medical oncologist out of [facility] in [facility] [place]. The patient is known to have non-small cell lung cancer the patient was treated with a combination of chemoradiation therapy and the patient is currently on immunotherapy with Keytruda. She does have an acute RSV infection and the patient remainsOn today's blood work, the patient has no significant abnormalities. The white cell count is at 8 with a hemoglobin 9.8 and a platelet count of 188. The patient's sodium levels at 141, BUN is 23 with a creatinine of 0.8 and a potassium level of 5.1. LFTs are essentially within normal limits. The patient remains on DuoNeb nebulized treatments [id number]. The patient remains on IV Solu-Medrol 60 mg every 6 hours. At this point in time, she is afebrile, she is on 60s of oxygen by nasal cannula with a pulse ox of 99%. I reviewed the chest x-ray from the current admission and this x-ray was done on 01/07/2024 and there is no evidence of any acute cardiopulmonary process. There is emphysematous changes mainly involving the upper lobes and the patient has obvious hyperinflation. 01/09/2024, patient is less short of breath compared to yesterday and less bronchospastic and wheezy. Has a congested cough. Unable to bring up much sputum. White cell count is at 10 with a hemoglobin 8.9 and a platelet count of 193. Sodium is 142 with a BUN of 21 and a creatinine of 0.8 and a potassium level of 4.8. Remains essentially the same treatment. Remains on DuoNeb. Rem ains on IV Solu-Medrol. Empiric antibiotic coverage with IV Rocephin. No altered mentation. No chest pain. No other complaints otherwise for now. 01/10/2024, the patient is being seen for a follow-up. The patient is feeling better. Less bronchospastic and wheezy compared to yesterday. No new complaints. She remains on oxygen at 2 L/min nasal cannula. She is afebrile. Remains on bronchodilators and steroids. No specific complaints. No altered mentation. No encephalopathy. White cell count is at 9.5 with a hemoglobin 9.3 and a platelet count of 177. Electrolytes are all within normal limits. Procalcitonin level was at 0.11. 01/11/2024, the patient is being seen for a follow-up. Patient is doing well. No significant complaints for now. Will do a home O2 evaluation. The patient is less bronchospastic and wheezy as the patient is recovering from an acute COPD exacerbation related to SV infection. No chest pain. No altered mentation. Last echo is at 9.5 with a hemoglobin of 14 and a platelet count of 199. Electrolytes are all stable. She is in good spirits for now. She has no specific complaints. On 01/12/2024, no new complaints and the patient is essentially stable. The patient was taken off the IV Solu-Medrol started on a prednisone burst taper at a dose of 40 mg p.o. daily. Home O2 evaluation will be done. Pulse ox is currently 84% on room air oxygen on 1 L her pulse ox comes up to 92%. Hemoglobin is at 9.5 with a white cell count of 10 and a platelet count of 274. Rest of the electrolytes are all within normal limits. The patient is a case of COPD and she encountered an acute Exacerbation due to an RSV infection. At the same time, the patient is known to have an underlying lung cancer which is being treated on outpatient basis. The patient is known to have non-small cell lung cancer and currently she is on immunotherapy with Keytruda. She has [id number] smoking history. The patient has been maintained on Trelegy Ellipta on outpatient basis and she has a home nebulizer. On 01/13/2024, the patient is being seen for a follow-up. Slightly more short of breath and wheezy compared to yesterday. This probably was related to the tap ering of the steroids was done over the past 24 to 48 hours. The patient opted to stay in the hospital for another day. She is still short of breath and wheezy. She is on 1 L of oxygen by nasal cannula with a pulse ox of 97%. No new labs are available from today. She is still recovering from acute exacerbation related to an acute RSV infection. She also has an underlying non- small cell lung cancer maintained on Keytruda on outpatient basis. Objective - Vital Signs Vital signs: Vital Signs Temp 97.9 F 01/13/24 07:34 Pulse 96 01/13/24 08:57 Resp 19 01/13/24 07:34 BP 170/82 01/13/24 07:34 Pulse Ox 97 01/13/24 08:49 FiO2 Intake & Output 01/12/24 01/13/24 01/13/24 18:59 06:59 18:59 Weight 49.895 kg Other: Voiding Method Bedside Commode Toilet # Voids 2 2 # Bowel Movements 1 - Exam Mild to moderate respiratory distress, frequent cough, audible wheezing. Currently on 1 L of oxygen by nasal cannula. No significant shortness of breath at rest. She has pursed lip breathing. HEENT examination is grossly unremarkable. Mucous membranes are moist. No oral lesions. Neck supple. Full range of motion. No adenopathy thyromegaly or neck vein distention. Cardiovascular examination reveals regular rhythm rate. S1-S2 normal. No S3 or S4. No discernible murmur noted. Lungs reveal coarse bilateral inspiratory and expiratory wheezes and rhonchi. Breath sounds are equal bilaterally but diminished throughout. The patient's coughing has subsided significantly. There is improved air entry bilaterally. Abdomen soft bowel sounds are heard. No masses or tenderness. Extremities are intact. No cyanosis clubbing or edema. Skin is without rash or lesion. Neurologic examination is brief but nonfocal. - Labs CBC & Chem 7: 01/12/24 06:45 01/12/24 06:45 Labs: Microbiology - Last 24 Hours (Table) 01/07/24 09:14 Blood Culture - Final Blood 01/07/24 08:55 Blood Culture - Final Blood Assessment and Plan Plan: Acute hypoxemic respiratory failure, secondary to COPD exacerbation, likely triggered by RSV infection. Oxygenation is stable and the patient remains on oxygen at 1 L/min nasal cannula with a pulse ox of 97%, clinically improving Acute on chronic shortness of breath secondary to COPD exacerbation/RSV infection, clinically improving Acute RSV tracheobronchitis, no evidence of any pneumonia based on chest x-ray findings. History of non-small cell lung cancer, with previous chemotherapy and radiation therapy, now on immunotherapy with Keytruda. Previous history of 45 years of tobacco use. History of hypertension. Plan: I am going to start the patient again on IV Solu-Medrol and start the prednisone again. Will keep her on IV Solu-Medrol for another 24 hours Home O2 evaluation was done and the patient qualifies for home O2. Pulse ox on room air is 84% and 1 L she is up to 92%. She will need a home concentrator and portable tanks. This will be arranged for the patient. Continue bronchodilators Allow the patient to utilize her Trelegy Ellipta from home 1 puff a day DuoNeb nebulized treatments 4 times a day [id number] Outpatient follow-up with oncology and pulmonology. The patient lives in the [facility]. Her oncologist also [facility]. Canceled for discharge for today acute the patient hospital for IV steroids for another 24 hours. Will continue to follow
[2024-01-13] MEDS: SYMBICORT 160-4.5 MCG INHALER INHALATION SCH (14:57)
--- NOTE | 2024-01-13 17:13 | PN ---
PROGRESS NOTE DATE OF SERVICE: 01/13/2024 SUBJECTIVE: This is a 73-year-old woman, who was admitted with COPD acute exacerbation, also had acute RSV infection. The patient is extremely short of breath. The patient is being closely monitored. increased the dose of steroids. PAST MEDICAL HISTORY: Reviewed. REVIEW OF SYSTEMS: A 14-point review is negative except as mentioned earlier. CURRENT MEDICATIONS: Reviewed include Rocephin. Dose and rest of medications noted. PHYSICAL EXAMINATION: VITAL SIGNS: Pulse is 96, blood pressure is 170/82, respirations 18. HEENT: Conjunctivae normal. CARDIOVASCULAR: S1 and S2. RESPIRATION: Breathing efforts are markedly increased. Bilateral scattered rhonchi and crackles. ABDOMEN: Soft. NERVOUS SYSTEM: Nonfocal. LABORATORY DATA: WBC n ASSESSMENT: 1. COPD acute exacerbation with acute hypoxic respiratory failure. 2. Acute RSV infection. 3. Acute purulent tracheobronchitis. 4. Transaminitis. 5. Microcytic anemia. 6. History of non-small cell lung cancer. RECOMMENDATIONS: Recommend to continue current management and continue symptomatic treatment. Repeat labs. Continue steroids. Continue with empiric antibiotics. Cultures have been negative so far. COVID-19 was negative. Further recommendations to follow. MMODL / IJN: [id number] / TYLER
[2024-01-14 09:38] LABS: Basophils # (A) 0.04 X 10*3/uL (0.00-0.10); Basophils % (A) 0.5 %; Eosinophils # (A) 0 X 10*3/uL (0.04-0.35); Eosinophils % (A) 0 %; HCT 34.5 % (37.2-46.3); HGB 10.8 g/dL (12.0-15.0); Lymphocytes % (A) 7.4 %; MCH 31.5 pg (27.0-32.0); MCHC 31.3 g/dL (32.0-37.0); MCV 100.6 FL (80.0-97.0); Mean Platelet Volume 10.1 FL (9.5-12.2); Monocytes # (A) 0.67 X 10*3/uL (0.20-1.00); Monocytes % (A) 8.3 %; NRBC Per 100 WBC 0 X 10*3/uL (0.00-0.01); Neutrophils # (A) 6.48 X 10*3/uL (1.80-7.70); Platelet Count 339 X 10*3/uL (140-440); RBC 3.43 X 10*6/uL (4.10-5.20); RDW 16.9 % (11.5-14.5)
[2024-01-14 10:41] LABS: ALT 123 U/L (8-44); AST 61 U/L (13-35); Albumin 4.2 g/dL (3.8-4.9); Albumin/Globulin Ratio 1.75 Ratio (1.60-3.17); Alkaline Phosphatase 76 U/L (41-126); BUN/Creat Ratio 25.25 Ratio (12.00-20.00); Blood Urea Nitrogen 20.2 mg/dL (9.0-27.0); Calcium 9.1 mg/dL (8.7-10.3); Carbon Dioxide 26.6 mmol/L (21.6-31.8); Chloride 101 mmol/L (96-109); Globulin 2.4 g/dL (1.6-3.3); Glucose 111 mg/dL (70-110); Potassium 4.5 mmol/L (3.5-5.5); Sodium 140 mmol/L (135-145); Total Bilirubin 0.3 mg/dL (0.3-1.2); Total Protein 6.6 g/dL (6.2-8.2)
--- NOTE | 2024-01-14 13:50 | XR ---
EXAMINATION TYPE: XR chest 1V portable DATE OF EXAM: 01/14/2024 COMPARISON: 01/07/2024 INDICATION: COPD TECHNIQUE: Single frontal view of the chest is obtained. FINDINGS: The heart size is normal. The pulmonary vasculature is normal. The lungs are clear. Some scarring at the right apex is present. Port is present on the left with tip in the superior vena cava region. Is hyperinflation findings the diaphragms compatible with COPD right radiopaque foreign body is withi n the soft tissues of the distal left upper extremity. Correlate for a catheter. IMPRESSION: 1. COPD. 2. Correlate for foreign body or catheter in the distal left upper extremity near the antecubital fos sa.
--- NOTE | 2024-01-14 14:56 | P.PN ---
Subjective Progress Note Date: 01/14/24 73-year-old female with history of COPD, and lung cancer. The patient presented to the emergency department today, at 7:15 in the morning. The patient came in with complaints of 2 days worth of increasing shortness of breath, chest congestion, and cough. Everything seemed to get worse just yesterday. The patient does not use home oxygen. She is being treated with Trelegy, and albuterol for her COPD. She sees a physician in [place], [place], but the name of . The patient was diagnosed with non-small cell lung cancer, June 2023. She has had chemotherapy, radiation therapy, and now is on immunotherapy, with Keytruda. The patient smoked for 45 years, 1 pack a day. She does not s moke currently. Current labs include a white count 5.1, hemoglobin 11.1, hematocrit 34.5, and platelet count 217,000. Sodium 137, potassium 5.1, chlorides 107, CO2 24, BUN 19, creatinine 0.78. Glucose is 157. She did test positive for RSV. Chest x-ray shows hyperlucent upper lung hua, consistent with proximal acinar or centrilobular emphysema. on today's evaluation of 01/08/2024, the patient is being seen for a follow-up. This patient is known to have advanced COPD, and the patient has been maintained on Trelegy Ellipta on outpatient basis. The patient was hospitalized for worsening shortness of breath attributed essentially to COPD exacerbation. Noted her satellite communications operator and her medical oncologist out of [place] in [facility]. The patient is known to have non-small cell lung cancer the patient was treated with a combination of chemoradiation therapy and the patient is currently on immunotherapy with Keytruda. She does have an acute RSV infection and the patient remainsOn today's blood work, the patient has no significant abnormalities. The white cell count is at 8 with a hemoglobin 9.8 and a platelet count of 188. The patient's sodium levels at 141, BUN is 23 with a creatinine of 0.8 and a potassium level of 5.1. LFTs are essentially within normal limits. The patient remains on DuoNeb nebulized treatments [id number]. The patient remains on IV Solu-Medrol 60 mg every 6 hours. At this point in time, she is afebrile, she is on 60s of oxygen by nasal cannula with a pulse ox of 99%. I reviewed the chest x-ray from the current admission and this x-ray was done on 01/07/2024 and there is no evidence of any acute cardiopulmonary process. There is emphysematous changes mainly involving the upper lobes and the patient has obvious hyperinflation. 01/09/2024, patient is less short of breath compared to yesterday and less bronchospastic and wheezy. Has a congested cough. Unable to bring up much sputum. White cell count is at 10 with a hemoglobin 8.9 and a platelet count of 193. Sodium is 142 with a BUN of 21 and a creatinine of 0.8 and a potassium level of 4.8. Remains essentially the same treatment. Remains on DuoNeb. Rem ains on IV Solu-Medrol. Empiric antibiotic coverage with IV Rocephin. No altered mentation. No chest pain. No other complaints otherwise for now. 01/10/2024, the patient is being seen for a follow-up. The patient is feeling better. Less bronchospastic and wheezy compared to yesterday. No new complaints. She remains on oxygen at 2 L/min nasal cannula. She is afebrile. Remains on bronchodilators and steroids. No specific complaints. No altered mentation. No encephalopathy. White cell count is at 9.5 with a hemoglobin 9.3 and a platelet count of 177. Electrolytes are all within normal limits. Procalcitonin level was at 0.11. 01/11/2024, the patient is being seen for a follow-up. Patient is doing well. No significant complaints for now. Will do a home O2 evaluation. The patient is less bronchospastic and wheezy as the patient is recovering from an acute COPD exacerbation related to SV infection. No chest pain. No altered mentation. Last echo is at 9.5 with a hemoglobin of 14 and a platelet count of 199. Electrolytes are all stable. She is in good spirits for now. She has no specific complaints. On 01/12/2024, no new complaints and the patient is essentially stable. The patient was taken off the IV Solu-Medrol started on a prednisone burst taper at a dose of 40 mg p.o. daily. Home O2 evaluation will be done. Pulse ox is currently 84% on room air oxygen on 1 L her pulse ox comes up to 92%. Hemoglobin is at 9.5 with a white cell count of 10 and a platelet count of 274. Rest of the electrolytes are all within normal limits. The patient is a case of COPD and she encountered an acute Exacerbation due to an RSV infection. At the same time, the patient is known to have an underlying lung cancer which is being treated on outpatient basis. The patient is known to have non-small cell lung cancer and currently she is on immunotherapy with Keytruda. She has [id number] smoking history. The patient has been maintained on Trelegy Ellipta on outpatient basis and she has a home nebulizer. On 01/13/2024, the patient is being seen for a follow-up. Slightly more short of breath and wheezy compared to yesterday. This probably was related to the tap ering of the steroids was done over the past 24 to 48 hours. The patient opted to stay in the hospital for another day. She is still short of breath and wheezy. She is on 1 L of oxygen by nasal cannula with a pulse ox of 97%. No new labs are available from today. She is still recovering from acute exacerbation related to an acute RSV infection. She also has an underlying non- small cell lung cancer maintained on Keytruda on outpatient basis. 01/14/2024, patient is stable and she is benefiting from IV Solu-Medrol. Not ready for discharge yet. Has cough. No significant sputum production. She is on 2 L with a pulse ox of 94%. Remains on DuoNeb updrafts, Symbicort and IV Solu-Medrol 6 mg every 6 hours. No thrush. White cell count is at 8 with a hemoglobin 10.8, BUN is 20 with a creatinine of 0.8 and sodium levels at 140 with a potassium level of 4.5. Objective - Vital Signs Vital signs: Vital Signs Temp 97.8 F 01/14/24 07:13 Pulse 94 01/14/24 08:02 Resp 19 01/14/24 07:13 BP 149/78 01/14/24 07:13 Pulse Ox 94 L 01/14/24 07:13 FiO2 Intake & Output 01/13/24 01/14/24 01/14/24 18:59 06:59 18:59 Other: Voiding Method Toilet Toilet Bedside Commode # Voids 4 2 # Bowel Movements 1 - Exam Mild to moderate respiratory distress, frequent cough, audible wheezing. Currently on 1 L of oxygen by nasal cannula. No significant shortness of breath at rest. She has pursed lip breathing. HEENT examination is grossly unremarkable. Mucous membranes are moist. No oral lesions. Neck supple. Full range of motion. No adenopathy thyromegaly or neck vein distention. Cardiovascular examination reveals regular rhythm rate. S1-S2 normal. No S3 or S4. No discernible murmur noted. Lungs reveal coarse bilateral inspiratory and expiratory wheezes and rhonchi. Breath sounds are equal bilaterally but diminished throughout. The patient's coughing has subsided significantly. There is improved air entry bilaterally. Abdomen soft bowel sounds are heard. No masses or tenderness. Extremities are intact. No cyanosis clubbing or edema. Skin is without rash or lesion. Neurologic examination is brief but nonfocal. - Labs CBC & Chem 7: 01/14/24 06:23 01/14/24 06:23 Labs: Abnormal Lab Results - Last 24 Hours (Table) 01/14/24 01/14/24 Range/Units 06:23 06:23 RBC 3.43 L (4.10-5.20) X 10*6/uL Hgb 10.8 L (12.0-15.0) g/dL Hct 34.5 L (37.2-46.3) % MCV 100.6 H (80.0-97.0) FL MCHC 31.3 L (32.0-37.0) g/dL RDW 16.9 H (11.5-14.5) % Immature Gran # 0.31 H (0.00-0.04) X 10*3/uL Lymphocytes # 0.60 L (0.90-5.00) X 10*3/uL Eosinophils # 0 L (0.04-0.35) X 10*3/uL Anion Gap 12.40 H (4.00-12.00) mmol/L BUN/Creatinine Ratio 25.25 H (12.00-20.00) Ratio Glucose 111 H (70-110) mg/dL AST 61 H (13-35) U/L ALT 123 H (8-44) U/L Assessment and Plan Plan: Acute hypoxemic respiratory failure, secondary to COPD exacerbation, likely triggered by RSV infection. Oxygenation is stable and the patient remains on oxygen at 1 L/min nasal cannula with a pulse ox of 97%, clinically improving Acute on chronic shortness of breath secondary to COPD exacerbation/RSV infection, clinically improving Acute RSV tracheobronchitis, no evidence of any pneumonia based on chest x-ray findings. History of non-small cell lung cancer, with previous chemotherapy and radiation therapy, now on immunotherapy with Keytruda. Previous history of 45 years of tobacco use. History of hypertension. Plan: Will continue same treatment without any changes. Slightly improved compared to yesterday. I am going to start the patient again on IV Solu-Medrol and start the prednisone again. Will keep her on IV Solu-Medrol for another 24 hours Home O2 evaluation was done and the patient qualifies for home O2. Pulse ox on room air is 84% and 1 L she is up to 92%. She will need a home concentrator and portable tanks. This will be arranged for the patient. Continue bronchodilators Allow the patient to utilize her Trelegy Ellipta from home 1 puff a day DuoNeb nebulized treatments 4 times a day [id number] Will continue to follow
--- NOTE | 2024-01-15 01:34 | PN ---
PROGRESS NOTE DATE OF SERVICE: 01/14/2024 SUBJECTIVE: This is a 73-year-old woman, who was admitted with combination of COPD and RSV, significantly short of breath. The chest x-ray repeated today showed emphysematous abnormalities. No pneumonia. PHYSICAL EXAMINATION: VITAL SIGNS: Pulse is 94, blood pressure 149/70, respirations 19. CHEST: Bilateral scattered rhonchi and crackles. ABDOMEN: Soft. NERVOUS SYSTEM: Nonfocal. LABORATORY DATA: WBC 8.1 and D-dimer is 0.31. ASSESSMENT: 1. Chronic obstructive pulmonary disease acute exacerbation with acute hypoxic respiratory failure. 2. Acute RSV infection. 3. Acute pain tracheobronchitis. 4. Transaminitis. 5. Microcytic anemia. 6. History of non-small cell lung cancer. RECOMMENDATIONS: I recommend to continue current management and continue symptomatic treatment. Otherwise continue the bronchodilators steroids. Closely follow with Pulmonary. Guarded prognosis. Further recommendations to follow. MMLUIS ENRIQUEL / MALAIKAN: [id number] /
[2024-01-15 09:34] LABS: Basophils # (A) 0.02 X 10*3/uL (0.00-0.10); Basophils % (A) 0.2 %; Eosinophils # (A) 0 X 10*3/uL (0.04-0.35); Eosinophils % (A) 0 %; HCT 33.8 % (37.2-46.3); HGB 10.6 g/dL (12.0-15.0); Lymphocytes # (A) 0.46 X 10*3/uL (0.90-5.00); Lymphocytes % (A) 4.1 %; MCH 31.9 pg (27.0-32.0); MCHC 31.4 g/dL (32.0-37.0); MCV 101.8 FL (80.0-97.0); Mean Platelet Volume 9.9 FL (9.5-12.2); Monocytes # (A) 0.66 X 10*3/uL (0.20-1.00); Monocytes % (A) 5.8 %; NRBC Per 100 WBC 0 X 10*3/uL (0.00-0.01); Neutrophils # (A) 9.83 X 10*3/uL (1.80-7.70); Neutrophils % (A) 86.6 %; Platelet Count 357 X 10*3/uL (140-440); RBC 3.32 X 10*6/uL (4.10-5.20); RDW 16.8 % (11.5-14.5); WBC 11.34 X 10*3/uL (4.50-10.00)
[2024-01-15 09:35] LABS: BUN/Creat Ratio 35.75 Ratio (12.00-20.00); Blood Urea Nitrogen 28.6 mg/dL (9.0-27.0); Calcium 9.2 mg/dL (8.7-10.3); Carbon Dioxide 26.6 mmol/L (21.6-31.8); Chloride 103 mmol/L (96-109); Glucose 115 mg/dL (70-110); Potassium 4.8 mmol/L (3.5-5.5); Sodium 141 mmol/L (135-145)
--- NOTE | 2024-01-15 16:04 | P.PN ---
Subjective Progress Note Date: 01/15/24 73-year-old female with history of COPD, and lung cancer. The patient presented to the emergency department today, at 7:15 in the morning. The patient came in with complaints of 2 days worth of increasing shortness of breath, chest congestion, and cough. Everything seemed to get worse just yesterday. The patient does not use home oxygen. She is being treated with Trelegy, and albuterol for her COPD. She sees a physician in [place], [place], but the name of . The patient was diagnosed with non-small cell lung cancer, June 2023. She has had chemotherapy, radiation therapy, and now is on immunotherapy, with Keytruda. The patient smoked for 45 years, 1 pack a day. She does not s moke currently. Current labs include a white count 5.1, hemoglobin 11.1, hematocrit 34.5, and platelet count 217,000. Sodium 137, potassium 5.1, chlorides 107, CO2 24, BUN 19, creatinine 0.78. Glucose is 157. She did test positive for RSV. Chest x-ray shows hyperlucent upper lung hua, consistent with proximal acinar or centrilobular emphysema. on today's evaluation of 01/08/2024, the patient is being seen for a follow-up. This patient is known to have advanced COPD, and the patient has been maintained on Trelegy Ellipta on outpatient basis. The patient was hospitalized for worsening shortness of breath attributed essentially to COPD exacerbation. Noted her embedded software architect and her medical oncologist out of [facility] in [facility] [place] [facility]. The patient is known to have non-small cell lung cancer the patient was treated with a combination of chemoradiation therapy and the patient is currently on immunotherapy with Keytruda. She does have an acute RSV infection and the patient remainsOn today's blood work, the patient has no significant abnormalities. The white cell count is at 8 with a hemoglobin 9.8 and a platelet count of 188. The patient's sodium levels at 141, BUN is 23 with a creatinine of 0.8 and a potassium level of 5.1. LFTs are essentially within normal limits. The patient remains on DuoNeb nebulized treatments [id number]. The patient remains on IV Solu-Medrol 60 mg every 6 hours. At this point in time, she is afebrile, she is on 60s of oxygen by nasal cannula with a pulse ox of 99%. I reviewed the chest x-ray from the current admission and this x-ray was done on 01/07/2024 and there is no evidence of any acute cardiopulmonary process. There is emphysematous changes mainly involving the upper lobes and the patient has obvious hyperinflation. 01/09/2024, patient is less short of breath compared to yesterday and less bronchospastic and wheezy. Has a congested cough. Unable to bring up much sputum. White cell count is at 10 with a hemoglobin 8.9 and a platelet count of 193. Sodium is 142 with a BUN of 21 and a creatinine of 0.8 and a potassium level of 4.8. Remains essentially the same treatment. Remains on DuoNeb. Rem ains on IV Solu-Medrol. Empiric antibiotic coverage with IV Rocephin. No altered mentation. No chest pain. No other complaints otherwise for now. 01/10/2024, the patient is being seen for a follow-up. The patient is feeling better. Less bronchospastic and wheezy compared to yesterday. No new complaints. She remains on oxygen at 2 L/min nasal cannula. She is afebrile. Remains on bronchodilators and steroids. No specific complaints. No altered mentation. No encephalopathy. White cell count is at 9.5 with a hemoglobin 9.3 and a platelet count of 177. Electrolytes are all within normal limits. Procalcitonin level was at 0.11. 01/11/2024, the patient is being seen for a follow-up. Patient is doing well. No significant complaints for now. Will do a home O2 evaluation. The patient is less bronchospastic and wheezy as the patient is recovering from an acute COPD exacerbation related to SV infection. No chest pain. No altered mentation. Last echo is at 9.5 with a hemoglobin of 14 and a platelet count of 199. Electrolytes are all stable. She is in good spirits for now. She has no specific complaints. On 01/12/2024, no new complaints and the patient is essentially stable. The patient was taken off the IV Solu-Medrol started on a prednisone burst taper at a dose of 40 mg p.o. daily. Home O2 evaluation will be done. Pulse ox is currently 84% on room air oxygen on 1 L her pulse ox comes up to 92%. Hemoglobin is at 9.5 with a white cell count of 10 and a platelet count of 274. Rest of the electrolytes are all within normal limits. The patient is a case of COPD and she encountered an acute Exacerbation due to an RSV infection. At the same time, the patient is known to have an underlying lung cancer which is being treated on outpatient basis. The patient is known to have non-small cell lung cancer and currently she is on immunotherapy with Keytruda. She has [id number] smoking history. The patient has been maintained on Trelegy Ellipta on outpatient basis and she has a home nebulizer. On 01/13/2024, the patient is being seen for a follow-up. Slightly more short of breath and wheezy compared to yesterday. This probably was related to the tap ering of the steroids was done over the past 24 to 48 hours. The patient opted to stay in the hospital for another day. She is still short of breath and wheezy. She is on 1 L of oxygen by nasal cannula with a pulse ox of 97%. No new labs are available from today. She is still recovering from acute exacerbation related to an acute RSV infection. She also has an underlying non- small cell lung cancer maintained on Keytruda on outpatient basis. 01/14/2024, patient is stable and she is benefiting from IV Solu-Medrol. Not ready for discharge yet. Has cough. No significant sputum production. She is on 2 L with a pulse ox of 94%. Remains on DuoNeb updrafts, Symbicort and IV Solu-Medrol 6 mg every 6 hours. No thrush. White cell count is at 8 with a hemoglobin 10.8, BUN is 20 with a creatinine of 0.8 and sodium levels at 140 with a potassium level of 4.5. Towards improvement on 01/15/2024, the patient is doing well. No specific complaints. She feels that today she is doing better without any significant cough or congestion. No chest tightness. Continues to have exertional dyspnea. Remains on bronchodilators and steroids. White cell count is 11 with a hemoglobin 10.6 and a platelet count of 357. BUN is 28 with a creatinine of 0.8 and sodium levels at 141. Objective - Vital Signs Vital signs: Vital Signs Temp 97.6 F 01/15/24 08:08 Pulse 80 01/15/24 12:18 Resp 19 01/15/24 08:08 BP 145/80 01/15/24 08:08 Pulse Ox 95 01/15/24 08:08 FiO2 Intake & Output 01/14/24 01/15/24 01/15/24 18:59 06:59 18:59 Other: Voiding Method Bedside Commode # Voids 3 3 1 # Bowel Movements 0 - Exam Mild to moderate respiratory distress, frequent cough, audible wheezing. Currently on 1 L of oxygen by nasal cannula. No significant shortness of breath at rest. She has pursed lip breathing. HEENT examination is grossly unremarkable. Mucous membranes are moist. No oral lesions. Neck supple. Full range of motion. No adenopathy thyromegaly or neck vein distention. Cardiovascular examination reveals regular rhythm rate. S1-S2 normal. No S3 or S4. No discernible murmur noted. Lungs reveal coarse bilateral inspiratory and expiratory wheezes and rhonchi. Breath sounds are equal bilaterally but diminished throughout. The patient's coughing has subsided significantly. There is improved air entry bilaterally. Abdomen soft bowel sounds are heard. No masses or tenderness. Extremities are intact. No cyanosis clubbing or edema. Skin is without rash or lesion. Neurologic examination is brief but nonfocal. - Labs CBC & Chem 7: 01/15/24 04:59 01/15/24 04:59 Labs: Abnormal Lab Results - Last 24 Hours (Table) 01/15/24 01/15/24 Range/Units 04:59 04:59 WBC 11.34 H (4.50-10.00) X 10*3/uL RBC 3.32 L (4.10-5.20) X 10*6/uL Hgb 10.6 L (12.0-15.0) g/dL Hct 33.8 L (37.2-46.3) % MCV 101.8 H (80.0-97.0) FL MCHC 31.4 L (32.0-37.0) g/dL RDW 16.8 H (11.5-14.5) % Immature Gran # 0.37 H (0.00-0.04) X 10*3/uL Neutrophils # 9.83 H (1.80-7.70) X 10*3/uL Lymphocytes # 0.46 L (0.90-5.00) X 10*3/uL Eosinophils # 0 L (0.04-0.35) X 10*3/uL BUN 28.6 H (9.0-27.0) mg/dL BUN/Creatinine Ratio 35.75 H (12.00-20.00) Ratio Glucose 115 H (70-110) mg/dL Assessment and Plan Plan: Acute hypoxemic respiratory failure, secondary to COPD exacerbation, likely triggered by RSV infection. Oxygenation is stable and the patient remains on oxygen at 1 L/min nasal cannula with a pulse ox of 97%, clinically improving Acute on chronic shortness of breath secondary to COPD exacerbation/RSV infection, clinically improving Acute RSV tracheobronchitis, no evidence of any pneumonia based on chest x-ray findings. History of non-small cell lung cancer, with previous chemotherapy and radiation therapy, now on immunotherapy with Keytruda. Previous history of 45 years of tobacco use. History of hypertension. Plan: Improving clinically Will continue IV Solu-Medrol for the time of discharge Home O2 evaluation was done and the patient qualifies for home O2. Pulse ox on room air is 84% and 1 L she is up to 92%. She will need a home concentrator and portable tanks. This will be arranged for the patient. Continue bronchodilators Allow the patient to utilize her Trelegy Ellipta from home 1 puff a day DuoNeb nebulized treatments 4 times a day [id number] Will continue to follow
--- NOTE | 2024-01-15 18:03 | P.PN ---
Subjective Progress Note Date: 01/15/24 Patient is a 73-year-old female with known history of non-small lung cancer s/p chemotherapy and currently on immunotherapy and prior history of smoking presents to ER with complaints of difficulty breathing and cough with yellow sputum production. All her symptoms started yesterday afternoon and has been worsening which made her to come to ER. Denies any fever or chills. No complaints of nausea vomiting abdominal pain or diarrhea. Denies any recent illnesses or sick contacts. Patient was tachycar dic and hypertensive on admission and also requiring oxygen at present nonrebreather on admission. Chest x-ray showed no acute cardiopulmonary findings. Suspect COPD changes. Laboratory data showed WBC 5.1 hemoglobin 11.1 and platelets 217 Sodium 137 potassium 5.1 chloride 107 bicarb is 24 BUN 19 and creatinine 0.78 and blood sugar 157, AST 47 ALT 39 alk phos 90 RSV PCR positive 01/08/2024 Patient currently lying in the bed. Awake alert and oriented x 3. Lethargic and weak. Still requiring high flow oxygen at 6 L. Afebrile. No nausea or vomiting or diarrhea. No complaints of chest pain. Still having shortness of breath. Laboratory pressure WBC 8.0 hemoglobin 9.8 and platelets 188 Blood sugar 137 liver enzymes normalized. Patient has been continued on IV Solu-Medrol, DuoNebs and antibiotics of ceftriaxone. Blood cultures negative so far. Pulmonary is on board. Current medications reviewed. 01/09/2024 Patient is lying in the bed. Awake alert and oriented. Anxious and is also complaints of having shortness of breath. Still having diffuse wheezing and diminished sounds on exam. No complaints of chest pain. Patient has been afebrile. Cough without any sputum production. Her patient has been continued on IV Solu-Medrol DuoNebs and antibiotics empirically in the form of ceftriaxone. Laboratory test showed WBC 10.0 hemoglobin 8.9 and platelets 193 Blood sugar 124 and calcium 8.2. 01/10/2024 Patient is awake alert and oriented. No complaints of chest pain. Shortness of breath he is improving. No nausea vomiting or abdominal pain. Currently on 2 L oxygen via nasal cannula. Mentation is also much improved. No headache or dizziness. Laboratory data showed WBC 9.4 hemoglobin 9.3 and platelets 499 other laboratory data reviewed. Blood sugars 114. Patient remains on IV Solu- Medrol DuoNebs and antibiotics empirically level of ceftriaxone. 01/11/2024 Patient is currently lying in the bed. Able to sit on the side of the bed. No complaints of chest pain or shortness of breath. Patient is having mild expiratory wheezing and basilar diminished sounds. Patient is being continued on IV Solu-Medrol, DuoNebs and empiric antibiotics with ceftriaxone. Patient desaturated to 88% on room air. Currently on 2 L oxygen via nasal cannula. No new laboratory data today. Patient may need home oxygen relation and anticipate discharge in the next 24 hours. Pulmonary is on board. 01/12/2024 Patient is seen in follow-up today with pulmonary following and maintained on 1 L via nasal cannula. Home O2 evaluation being performed as patient will likely need on discharge to manage COPD. Patient is continued on IV steroids along with DuoNebs and empiric antibiotics with pulmonary following closely. Patient to follow-up with pulmonary outpatient and has been cleared by pulmonary. Patient is extremely dyspneic with minimal exertion while having conversation. Patient encouraged to increase activity as tolerated and continue current regimen and monitor overnight with possible discharge planning in 24 hours. Patient will be going home with daughter once stable. 01/15/2024 Patient is seen and evaluated this morning continues on 1 to 2 L via nasal cannula reports dyspnea with exertion. Patient is slightly dyspneic on conversation when sitting up in the bed. Patient appears fatigued and has been encouraged to increase activity as tolerated and sit up in the chair more often. Pulmonary following and patient is continued on IV steroids. Less bronch ospastic although continues with expiratory wheezing. Will continue IV steroids and [id number] breathing treatments and transition to prednisone taper on discharge. Discharge planning in process including oxygen on discharge with social work following again arrangements for discharge planning needs. Review of systems: Constitutional: No reports of fatigue, fever, or chills Cardiovascular: No reports of chest pain or palpitations Respiratory: reports of shortness of breath with exertion and continued occasional cough GI: No reports of nausea, vomiting, or diarrhea : No reports of dysuria or retention Neurovascular: No reports of weakness or numbness All medications have been reviewed PHYSICAL EXAMINATION: Patient is lying in the bed, mild distress appears dyspneic on exam, awake alert and oriented.. Well-developed, elderly appearing, thin built HEENT: Normocephalic. Neck is supple. Pupils reactive. Nostrils clear. Oral cavity is moist. Neck reveals no JVD, carotid bruits, or thyromegaly. CHEST EXAMINATION: Trachea is central. Symmetrical expansion. Bilateral expirat ory wheezing and basilar diminished sounds.. CARDIAC: Normal S1, S2 with no gallops. No murmurs ABDOMEN: Soft. Bowel sounds normal. No organomegaly. No abdominal bruits. Extremities: reveal no edema. No clubbing or cyanosis Neurologically awake, alert, oriented x3 with well-coordinated movements. No focal deficits noted Skin: No rash or skin lesions. Psychiatric: Cooperative. Non-suicidal Musculoskeletal: No joint swelling or deformity. Normal range of motion. Assessment: Acute hypoxic respiratory failure requiring nonrebreather on admission. Currently on 2 L oxygen via nasal cannula. Acute COPD exacerbation. Likely due to acute RSV infection Acute RSV infection Transaminitis. Resolved. Microcytic anemia with hemoglobin 11.1 History of non-small cell lung cancer status post chemoradiation and currently on Keytruda DVT prophylaxis with heparin subcu Plan: Patient will be continued on oxygen supplementation via nasal cannula. Currently on 1L oxygen via nasal cannula although appears to be dyspneic with conversation on exam. Home O2 evaluation done and patient will require oxygen to manage COPD. Social work following working on discharge planning and arranging for home O2 Continue with IV Solu-Medrol DuoNebs and antibiotics of ceftriaxone. Procalcitonin level 0.11. Will transition to prednisone taper and close outpatient follow-up with pulmonary Home medications reviewed and resumed as appropriate. Will monitor overnight and continue on IV steroids with possible discharge planning in the next 24 hours. Will arrange for home O2 as well The impression and plan of care has been dictated by Mari Montoya, Nurse Practitioner as directed. Dr. Enoch MD I have performed a history and examination and MDM of this patient, discussed the same with the dictator, and agree with the dictator's assessment and plan as written ,documented as a scribe. Based on total visit time, I have performed more than 50% of the visit. Objective - Vital Signs Vital signs: Vital Signs Temp 97.8 F 01/15/24 14:22 Pulse 92 01/15/24 16:36 Resp 19 01/15/24 14:22 BP 128/72 01/15/24 14:22 Pulse Ox 94 L 01/15/24 14:22 FiO2 Intake & Output 01/14/24 01/15/24 01/15/24 18:59 06:59 18:59 Other: Voiding Method Bedside Commode # Voids 3 3 1 # Bowel Movements 0 - Labs CBC & Chem 7: 01/15/24 04:59 01/15/24 04:59 Labs: Abnormal Lab Results - Last 24 Hours (Table) 01/15/24 01/15/24 Range/Units 04:59 04:59 WBC 11.34 H (4.50-10.00) X 10*3/uL RBC 3.32 L (4.10-5.20) X 10*6/uL Hgb 10.6 L (12.0-15.0) g/dL Hct 33.8 L (37.2-46.3) % MCV 101.8 H (80.0-97.0) FL MCHC 31.4 L (32.0-37.0) g/dL RDW 16.8 H (11.5-14.5) % Immature Gran # 0.37 H (0.00-0.04) X 10*3/uL Neutrophils # 9.83 H (1.80-7.70) X 10*3/uL Lymphocytes # 0.46 L (0.90-5.00) X 10*3/uL Eosinophils # 0 L (0.04-0.35) X 10*3/uL BUN 28.6 H (9.0-27.0) mg/dL BUN/Creatinine Ratio 35.75 H (12.00-20.00) Ratio Glucose 115 H (70-110) mg/dL
[2024-01-16 08:48] VITALS: RESP 17
--- NOTE | 2024-01-16 12:12 | P.PN ---
Subjective Progress Note Date: 01/16/24 The patient is seen today January 16, 2024 in follow-up on the regular medical floor. She is currently sitting up in bed. Awake and alert in no acute distress. She denies any worsening shortness of breath, cough or congestion. She is maintaining O2 saturations in the mid 90s on 2 L/min per nasal cannula. She is afebrile. Hemodynamically stable. Blood cultures revealed no growth. She is continued on DuoNeb ventilations, Symbicort, Solu-Medrol. Objective - Vital Signs Vital signs: Vital Signs Temp 97.5 F L 01/16/24 08:00 Pulse 80 01/16/24 08:56 Resp 17 01/16/24 08:00 BP 155/66 01/16/24 08:00 Pulse Ox 87 L 01/16/24 11:06 FiO2 Intake & Output 01/15/24 01/16/24 01/16/24 18:59 06:59 18:59 Other: # Voids 2 - Exam GENERAL EXAM: Alert, pleasant 73-year-old female, on 2 L nasal cannula, comfortable in no apparent distress. HEAD: Normocephalic. EYES: Normal reaction of pupils, equal size. NOSE: Clear with pink turbinates. THROAT: No erythema or exudates. NECK: No masses, no JVD. CHEST: No chest wall deformity. LUNGS: Equal air entry with no crackles, wheeze, rhonchi or dullness. CVS: S1 and S2 normal with no audible murmur, regular rhythm. ABDOMEN: No hepatosplenomegaly, normal bowel sounds, no guarding or rigidity. SPINE: No scoliosis or deformity SKIN: No rashes CENTRAL NERVOUS SYSTEM: No focal deficits, tone is normal in all 4 extremities. EXTREMITIES: There is no peripheral edema. No clubbing, no cyanosis. Peripheral pulses are intact. - Labs CBC & Chem 7: 01/15/24 04:59 01/15/24 04:59 Assessment and Plan Assessment: Acute hypoxemic respiratory failure, secondary to COPD exacerbation, likely triggered by RSV infection Acute on chronic shortness of breath secondary to COPD exacerbation/RSV infection, clinically improving Acute RSV tracheobronchitis, no evidence of any pneumonia based on chest x-ray findings History of non-small cell lung cancer, with previous chemotherapy and radiation therapy, now on immunotherapy with Keytruda Previous history of 45 years of tobacco use History of hypertension Plan: The patient was seen and evaluated Medications reviewed To be transitioned to a prednisone taper To be evaluated for home oxygen Continue her home Trelegy and DuoNeb inhalations Follow-up with her forging dies final finisher in 1 week This patient was seen independently by the pulmonary nurse practitioner addressing pulmonary issues I have personally seen and examined the patient, performed the documentation and the assessment and plan as written. Number of minutes spent on the visit: 24.
--- NOTE | 2024-01-16 12:29 | P.PN ---
Progress Note - Text Progress Note Date: 01/16/24 Patient will require nebulizer on discharge in order to manage COPD. Patient is continued on DuoNeb treatments 4 times daily as well as as needed. Prescription provided to corrections caseworker/social work regarding discharge planning.
[2024-01-16 14:43] VITALS: BP 158/65; TEMP 97.7
[2024-01-16 16:35] VITALS: PULSE 80
== END 2024-01-16 17:10 | disposition home or self-care (01) | DRG 189 ==
LOC: EC 07:15 → 4SSUR 09:07
PROVIDERS: ADMIT Internal Medicine; ATTEND Internal Medicine
DX: J96.01 Acute respiratory failure with hypoxia (principal); J44.1 Chronic obstructive pulmonary disease with (acute) exacerbation; C34.90 Malignant neoplasm of unspecified part of unspecified bronchus or lung; B97.4 Respiratory syncytial virus as the cause of diseases classified elsewhere; I10 Essential (primary) hypertension; R74.01 Elevation of levels of liver transaminase levels; D50.9 Iron deficiency anemia, unspecified; J43.2 Centrilobular emphysema; R00.0 Tachycardia, unspecified; Z87.891 Personal history of nicotine dependence; Z28.310 Unvaccinated for COVID-19; Z20.822 Contact with and (suspected) exposure to COVID-19; Z79.899 Other long term (current) drug therapy; Z90.5 Acquired absence of kidney; Z92.21 Personal history of antineoplastic chemotherapy; Z92.3 Personal history of irradiation
CPT/HCPCS: 36415; 71045; 80048; 80053; 82607; 82747; 83605; 83735; 84145; 85025; 85379; 85610; 85730; 87040; 87636; 93005; 94640; 94760; 96361; 96365; 96366; 96375; 96376; 99291